=== PATIENT | female | born 1945 | race Caucasian/White ===

== ENCOUNTER 2017-12-16 06:54 | Day surgery (SDC) | payer MEDICARE ==
[2017-12-10 08:40] VITALS: BMI 27.4
[~2017-12-16 06:54] MED LIST: LACTATED RINGERS 1,000 ML IV SCH; LIDOCAINE 1% 20 ML VIAL (10MG/ML) FOR IV START INTRADERMA PRN; MOXIFLOXACIN HCL 0.5% DROPS 3 ML BTL OP ONE; TETRACAINE 0.5% OPHTH (PF) DROPS 4 ML BTL OP ONE; TIMOLOL 0.5% OPHTH DROPS 5 ML BTL OP ONE
[2017-12-16] MEDS: CYCLOPENTOLATE 1% OPHTH SOLN 2 ML BTL OP ONE ×3 (07:25→07:31)
[2017-12-16] MEDS: PHENYLEPHRINE 2.5% OPHTH DRP 2ML OP NR ×3 (07:34→07:40)
[2017-12-16 07:57] VITALS: RESP 16; TEMP 98.9
[2017-12-16] MEDS ORDERED: MIDAZOLAM 2 MG/2 ML VIAL ONE (08:08)
[2017-12-16] MEDS ORDERED: fentaNYL (PF) 50 MCG/ML 2 ML AMP ONE (08:08)
[2017-12-16] MEDS ORDERED: HYALURONATE SODIUM INTRAOCULAR 1 EACH SYRINGE (12MG/ML) INTRAOCULA ONE (08:22)
[2017-12-16] MEDS ORDERED: BALANCED SALT IRRIG SOLN COMB2 15 ML IRRIG.SOLN INTRAOCULA ONE (08:23)
[2017-12-16] MEDS ORDERED: EPINEPHrine (PF) 0.3 ML in BALANCED SALT IRRIG SOLN COMB2 500 ML IRRIGATION ONE (08:24)
[2017-12-16] MEDS ORDERED: LIDOCAINE 1% (PF) 10MG/ML VIAL SQ ONE (08:24)
--- NOTE | 2017-12-16 08:42 | P.OP ---
Date of Procedure: 12/16/17 Preoperative Diagnosis: NS & PSC Postoperative Diagnosis: same Procedure(s) Performed: PIOL, OD Implants: PCB00 25.0 Anesthesia: MAC Surgeon: Garfield Jaquez Estimated Blood Loss (ml): 0 Pathology: none sent Condition: stable Disposition: same day Indications for Procedure: blurry vision Operative Findings: no complications
[2017-12-16 08:55] VITALS: BP 133/64; PULSE 57
--- NOTE | 2017-12-17 07:48 | OP ---
OPERATIVE REPORT DATE OF SURGERY: December 16, 2017 PREOPERATIVE DIAGNOSES:: 1. Nuclear sclerosis. 2. Posterior subcapsular cataract. POSTOPERATIVE DIAGNOSES:: 1. Nuclear sclerosis. 2. Posterior subcapsular cataract. OPERATION:: Phacoemulsification of cataract and intraocular lens implant of the right eye. ESTIMATED BLOOD LOSS:: Zero. SPECIMEN TAKEN:: None. NARRATIVE:: After obtaining the appropriate consent, the patient was brought to the Operating Room where the patient was placed under cardiac monitoring and prepped and draped in the usual sterile manner. At the 11 o'clock position a 15 degree super sharp blade was used to create a paracentesis followed by instillation of 1% Xylocaine MPF 50:50 mix with BSS into the anterior chamber. This was followed by Duovisc to stabilize the anterior chamber. At the 9 o'clock position a self-sealing corneal flap incision was created using 2.8 mm taran keratome. A cystatome was used to initiate a continuous tear capsulorrhexis which was completed with the Utrata forceps. A Binkhorst cannula was used to hydrodissect the lens nucleus followed by hydrodelineation. Phacoemulsification of the lens was performed utilizing phacochop in 23.17 seconds at 11% power. The remaining cortical material was removed using the irrigation aspiration mode followed by additional 1% Xylocaine MPF into the anterior chamber followed by viscoelastic to stabilize the capsular bag. An RORO PCP 00 25.0 diopters posterior chamber lens was placed into the capsular bag without difficulty. The remaining viscoelastic material was removed from the anterior chamber with the irrigation/aspiration. Balanced salt solution was used to normalize the intraocular pressure. The incision was checked for watertight integrity. The patient then received two drops of 0.5% timolol followed by two drops Vigamox, was lightly patched and shielded in the usual manner. There were no complications from the procedure. The patient tolerated the procedure well and was returned to recovery in good condition. MMODL / IJN: [id number] /
== END 2017-12-16 09:23 | disposition home or self-care (01) ==
LOC: OR 06:54
PROVIDERS: ATTEND Ophthalmology
DX: H25.11 Age-related nuclear cataract, right eye (principal); H25.041 Posterior subcapsular polar age-related cataract, right eye; H52.4 Presbyopia; H02.531 Eyelid retraction right upper eyelid; H02.534 Eyelid retraction left upper eyelid; H52.223 Regular astigmatism, bilateral; E03.9 Hypothyroidism, unspecified; J34.9 Unspecified disorder of nose and nasal sinuses; Z79.890 Hormone replacement therapy
CPT/HCPCS: 66984; C1780; J2250; J0171; J3010; J2001

== ENCOUNTER 2018-01-06 08:38 | Day surgery (SDC) | payer MEDICARE ==
[2017-12-22 09:55] VITALS: BMI 27.4
[~2018-01-06 08:38] MED LIST changes: -LIDOCAINE 1% 20 ML VIAL (10MG/ML) FOR IV START INTRADERMA PRN; +PHENYLEPHRINE 2.5% OPHTH DRP 2ML OP NR
[2018-01-06 09:22] VITALS: TEMP 98.1
[2018-01-06] MEDS: CYCLOPENTOLATE 1% OPHTH SOLN 2 ML BTL OP ONE ×3 (09:28→09:48)
[2018-01-06] MEDS ORDERED: LIDOCAINE 1% 20 ML VIAL (10MG/ML) FOR IV START INTRADERMA ONE (09:49)
[2018-01-06] MEDS ORDERED: fentaNYL (PF) 50 MCG/ML 2 ML AMP ONE (10:20)
[2018-01-06] MEDS ORDERED: MIDAZOLAM 2 MG/2 ML VIAL ONE (10:20)
[2018-01-06] MEDS ORDERED: BALANCED SALT IRRIG SOLN COMB2 15 ML IRRIG.SOLN INTRAOCULA ONE (10:22)
[2018-01-06] MEDS ORDERED: LIDOCAINE 1% (PF) 10MG/ML VIAL SQ ONE (10:23)
[2018-01-06] MEDS ORDERED: EPINEPHrine (PF) 0.3 ML in BALANCED SALT IRRIG SOLN COMB2 500 ML IRRIGATION ONE (10:24)
[2018-01-06] MEDS ORDERED: HYALURONATE SODIUM INTRAOCULAR 1 EACH SYRINGE (12MG/ML) INTRAOCULA ONE (10:28)
--- NOTE | 2018-01-06 10:45 | P.OP ---
Date of Procedure: 01/06/18 Preoperative Diagnosis: NS & PSC Postoperative Diagnosis: same Implants: PCB00 26.00 Anesthesia: MAC Surgeon: Garfield Jaquez Estimated Blood Loss (ml): 0 Condition: stable Disposition: same day Indications for Procedure: blurry vision Operative Findings: No complications
[2018-01-06 10:57] VITALS: RESP 16
[2018-01-06 11:21] VITALS: BP 142/78; PULSE 59
--- NOTE | 2018-01-06 19:41 | OP ---
OPERATIVE REPORT DATE OF SURGERY: 01/06/2018. PROCEDURE: Phacoemulsification of cataract and intraocular lens implant of the left eye. PREOPERATIVE DIAGNOSIS: Nuclear sclerosis, left eye. POSTOPERATIVE DIAGNOSIS: Subcapsular cataract, left eye. ESTIMATED BLOOD LOSS:: Zero. SPECIMEN TAKEN:: None. NARRATIVE:: After obtaining the appropriate consent, the patient was brought to the operating room, where the patient was placed under cardiac monitoring and prepped and draped in the usual sterile manner. At the 5 o'clock position a 15-degree super sharp blade was used to create a paracentesis followed by instillation of 1% Xylocaine MPF 50:50 mix with BSS into the anterior chamber. This was followed by Amvisc to stabilize the anterior chamber. At the 3 o'clock position a self-sealing corneal flap incision was created using 2.8 mm taran keratome. A cystotome was used to initiate a continuous tear capsulorrhexis which was completed with the Utrata forceps. A Binkhorst cannula was used to hydrodissect the lens nucleus followed by hydrodelineation. Phacoemulsification of the lens was performed utilizing phaco-chop in 15.73 seconds at 16% power. The remaining cortical material was removed using the irrigation aspiration mode followed by additional 1% Xylocaine MPF into the anterior chamber followed by viscoelastic to stabilize the capsular bag. An RORO PCB 00 26.0 diopter posterior chamber lens was placed into the capsular bag without difficulty. The remaining viscoelastic material was removed from the anterior chamber with the irrigation/aspiration. Balanced salt solution was used to normalize the intraocular pressure. The incision was checked for watertight integrity. The patient then received two drops of 0.5% timolol followed by two drops Vigamox, was lightly patched and shielded in the usual manner. There were no complications from the procedure. The patient tolerated the procedure well and was returned to recovery in good condition. MMODL / IJN: [id number] /
== END 2018-01-06 11:42 | disposition home or self-care (01) ==
LOC: OR 08:38
PROVIDERS: ATTEND Ophthalmology
DX: H25.042 Posterior subcapsular polar age-related cataract, left eye (principal); H02.531 Eyelid retraction right upper eyelid; H02.534 Eyelid retraction left upper eyelid; H52.4 Presbyopia; H52.223 Regular astigmatism, bilateral; E03.9 Hypothyroidism, unspecified; Z96.1 Presence of intraocular lens; J34.9 Unspecified disorder of nose and nasal sinuses; Z79.890 Hormone replacement therapy; Z79.899 Other long term (current) drug therapy
CPT/HCPCS: 66984; C1780; J2250; J0171; J3010; J2001

== ENCOUNTER → 2018-10-26 | Outpatient (CLI) | payer MEDICARE ==
--- NOTE | 2018-10-27 08:07 | MM ---
Reason for exam: screening (asymptomatic). Last mammogram was performed 2 years and 4 months ago. History: Patient is postmenopausal. Physical Findings: A clinical breast exam by your physician is recommended on an annual basis and results should be correlated with mammographic findings. MG Screening Mammo w CAD Bilateral CC and MLO view(s) were taken. Prior study comparison: July 10, 2016, right breast MG diagnostic mammo RT w CAD. January 09, 2016, right breast MG 3d work up w/cad RT. The breast tissue is heterogeneously dense. This may lower the sensitivity of mammography. There is no discrete abnormality. No significant changes when compared with prior studies. ASSESSMENT: Benign, BI-RAD 2 RECOMMENDATION: Routine screening mammogram of both breasts in 1 year.
== END | disposition home or self-care (01) ==
LOC: RADMAMWWP 08:06
PROVIDERS: ATTEND Family Medicine
DX: Z12.31 Encounter for screening mammogram for malignant neoplasm of breast (principal)
CPT/HCPCS: 77067

== ENCOUNTER → 2019-11-14 | Outpatient (CLI) | payer MEDICARE ==
[~2019-11-14] MED LIST changes: +DENOSUMAB 60 MG/ML 1 ML SYRINGE SQ NR; -LACTATED RINGERS 1,000 ML IV SCH; -MOXIFLOXACIN HCL 0.5% DROPS 3 ML BTL OP ONE; -PHENYLEPHRINE 2.5% OPHTH DRP 2ML OP NR; -TETRACAINE 0.5% OPHTH (PF) DROPS 4 ML BTL OP ONE; -TIMOLOL 0.5% OPHTH DROPS 5 ML BTL OP ONE
[2019-11-14 14:51] VITALS: BP 163/81; PULSE 67; RESP 16; TEMP 98.3
== END | disposition home or self-care (01) ==
LOC: PROCWHC3 14:26
PROVIDERS: ATTEND Nurse Practitioner Adult Health
DX: M81.0 Age-related osteoporosis without current pathological fracture (principal)
CPT/HCPCS: 96372; J0897

== ENCOUNTER → 2020-09-26 | Outpatient (CLI) | payer MEDICARE ==
--- NOTE | 2020-09-27 12:36 | MM ---
Reason for exam: screening (asymptomatic). Last mammogram was performed 1 year and 11 months ago. History: Patient is postmenopausal. Physical Findings: A clinical breast exam by your physician is recommended on an annual basis and results should be correlated with mammographic findings. MG 3D Screening Mammo W/Cad Bilateral CC and MLO view(s) were taken. Prior study comparison: October 26, 2018, bilateral MG screening mammo w CAD. July 10, 2016, right breast MG diagnostic mammo RT w CAD. The breast tissue is heterogeneously dense. This may lower the sensitivity of mammography. No significant changes when compared with prior studies. ASSESSMENT: Benign, BI-RAD 2 RECOMMENDATION: Routine screening mammogram of both breasts in 1 year.
== END | disposition home or self-care (01) ==
LOC: RADMAMWWP 09:58
PROVIDERS: ATTEND Nurse Practitioner Adult Health
DX: Z12.31 Encounter for screening mammogram for malignant neoplasm of breast (principal)
CPT/HCPCS: 77063; 77067

== ENCOUNTER → 2021-02-05 | Outpatient (CLI) | payer MEDICARE ==
--- NOTE | 2021-02-05 12:09 | P.STRESS ---
- Stress Test Note Stress Test Results/Findings: Exam Performed: stress echo exercise Exam Date: 02/05/21 Reason for Exam: Fatigue Height: 5 ft 4 in Weight: 77.2 kg Protocol: Italo stress echo Stage: I Duration of Exercise: 2:14 Resting Heart Rate: 74 Resting Blood Pressure: 151/76 Maximum Achieved Heart Rate: 149 Maximum Achieved Blood Pressure: 211/70 85% PMHR: 123 100% PMHR: 145 METS: 3.4 Technologist Comment: last BP 163/67 5 min pot exercise Stress Test Results/Findings: Patient underwent exercise stress echo with a Italo protocol treadmill stress test. Patient exercised into Stage 1 for a total of 2 minutes and 14 seconds reaching a total of 3.4 METS. Patient's maximum heart rate was 149 which represented 100 % age-predicted maximum heart rate. Stress EKG portion: At baseline patient's EKG showed normal sinus rhythm, normal axis, rare PVCs, no significant ST or T wave abnormalities. At peak exercise, EKG showed no si gnificant change from baseline. Stress echo portion: 2-D echocardiogram was performed in the parasternal long, personal short, apical 2 and apical four-chamber views at rest, peak exercise and in recovery. At baseline, echocardiogram showed left ventricular ejection fraction 60 % without wall motion abnormalities. With peak exercise, echocardiogram shows improvement in left ventricular ejection fraction, increase contractility, decrease in left ventricular dimension without wall motion abnormalities consistent with a normal response to exercise. Conclusions: 1. Normal EKG and echo response to exercise without evidence of inducible ischemia. 2. Very poor exercise capacity.
== END ==
LOC: RADNMMAIN 09:40
PROVIDERS: ATTEND Family Medicine
DX: I10 Essential (primary) hypertension (principal)
CPT/HCPCS: C8930; Q9950; 93351

== ENCOUNTER → 2021-03-22 | Outpatient (CLI) | payer MEDICARE ==
--- NOTE | 2021-03-22 08:54 | CT ---
EXAMINATION TYPE: CT lumbar spine wo con DATE OF EXAM: 03/22/2021 8:13 AM COMPARISON: None HISTORY: lumbar disc degeneration CT DLP: 949.60 mGycm Automated exposure control for dose reduction was used. Unenhanced CT of the lumbar spine was performed. Bone and soft tissue window settings are submitted as well as coronal and sagittal reconstructions. There is hypertrophic and degenerative disc disease at all levels with most marked findings at L4-5 a nd L5-S1 compatible severe degenerative disc disease. Diverticulosis of the colon. Parapelvic bilater al renal cysts suspected. Sub-5 mm exophytic lesion involving the right kidney too small to character ize. Postcholecystectomy changes noted. L1-L2: Degenerative disc disease and hypertrophic spurring. No obvious disc herniation or canal steno sis. No foraminal encroachment. L2-L3: Degenerative disc disease with facet arthropathy. Mild circumferential disc bulging. No defini te foraminal encroachment or canal stenosis. L3-L4: Severe degenerative disc disease with broad-based disc bulging, facet arthropathy and ligament um flavum hypertrophy. Could not exclude mild canal stenosis suspected mild bilateral foraminal encro achment. Recommend MRI. L4-L5: Severe degenerative disc disease with facet arthropathy. Mild effacement of thecal sac and for aminal encroachment with mild canal stenosis suggested. L5-S1: Severe degenerative disc disease with facet arthropathy. Bilateral foraminal encroachment. No definite canal stenosis. IMPRESSION: 1. Multilevel severe degenerative disc disease with facet arthropathy. Disc bulging L3-L4 and L2-L3. 2. Multilevel mild foraminal encroachment. Could not exclude mild canal stenosis L3-4 or L4-5 recomme nd follow-up MRI.
== END | disposition home or self-care (01) ==
LOC: RADCTMAIN 07:57
PROVIDERS: ATTEND Nurse Practitioner Adult Health
DX: M51.36 Other intervertebral disc degeneration, lumbar region (principal); M51.26 Other intervertebral disc displacement, lumbar region; M48.061 Spinal stenosis, lumbar region without neurogenic claudication; M47.816 Spondylosis without myelopathy or radiculopathy, lumbar region; M99.73 Connective tissue and disc stenosis of intervertebral foramina of lumbar region
CPT/HCPCS: 72131

== ENCOUNTER → 2021-06-06 | Outpatient (CLI) | payer MEDICARE ==
--- NOTE | 2021-06-06 17:36 | CT ---
EXAMINATION TYPE: CT abdomen pelvis wo/w con DATE OF EXAM: 06/06/2021 COMPARISON: None INDICATION: Parapelvic renal cyst. DLP: 2246 mGycm, Automated exposure control for dose reduction was used. CONTRAST: 100 mL of Isovue M300. Study performed with Oral Contrast TECHNIQUE: Axial images were obtained from above the diaphragm to the pubic rami in the axial plane a t 5 mm thick sections. Reconstructed images are reviewed on the computer in the coronal plane. FINDINGS: Limited CT sections are obtained the lung bases. The lung bases are clear. CT ABDOMEN: Liver: Normal Spleen: Normal Pancreas: Normal Adrenal glands: The adrenal glands are normal. Gallbladder: Surgically absent Kidneys: No masses are evident. No hydronephrosis is present. No cysts are present. Exam is initia lly without intravenous contrast. No renal stones are identified. Some peripelvic cysts may be presen t. Following contrast administration. Pelvic cysts present bilaterally are better visualized. These a re greater on the left but are small. Delayed images were obtained through the kidneys. Aorta: Normal Inferior vena cava: Normal. CT PELVIS: There may be some bowel wall thickening to the sigmoid colon. Correlate for colitis. Some mild wall t hickening may be present at the splenic flexure. Multiple diverticuli are present within the sigmoid colon. No adjacent inflammatory changes are evident however to suggest acute diverticulitis. There ar e loops of bowel which are incompletely distended or lack oral contrast limiting their evaluation. Co ntrast extends to the rectum. Appendix: Not identified. No dilated tubular structures are inflammatory changes are evident. Urinary bladder: Normal. Genitourinary structures: Uterus and adnexa are normal Osseous structures: No suspicious lytic or sclerotic lesions. IMPRESSIONS: 1. Suggestion of mild wall thickening within the sigmoid colon and at the splenic flexure. Correlate for colitis. 2. Diverticulosis without evidence of acute diverticulitis within the sigmoid colon. 3. Peripelvic cysts greater on the left.
== END | disposition home or self-care (01) ==
LOC: RADCTMAIN 12:21
PROVIDERS: ATTEND Family Medicine
DX: N28.1 Cyst of kidney, acquired (principal); K57.30 Diverticulosis of large intestine without perforation or abscess without bleeding
CPT/HCPCS: 82565; 84520; 74178; 36415; Q9967 ×2

== ENCOUNTER → 2023-02-16 | Outpatient (CLI) | payer MEDICARE ==
--- NOTE | 2023-02-17 06:20 | MR ---
EXAMINATION TYPE: MR lumbar spine wo con DATE OF EXAM: 02/16/2023 COMPARISON: CT lumbar spine March 22, 2021 HISTORY: Low back pain that radiates down both legs TECHNIQUE: Multiplanar, multisequence imaging of the lumbar spine is performed without IV contrast. FINDINGS: Sagittal images of the lumbar spine show vertebral body heights and alignment to appear sta ble and satisfactory. There is multilevel disc desiccation. Moderate to advanced disc space narrowing L4-L5 level is redemonstrated. Moderate multilevel anterior spurring is redemonstrated. The conus m edullaris is normal in position and signal ending inferior T12 level. The bone marrow signal intensi ty is overall heterogeneous. Axial images at T12-L1 level shows mild broad-based disc bulge minimally effacing anterior thecal sac along with mild facet arthropathy effacing posterior lateral thecal sac. Axial images at L1-L2 level appear within normal limits. Axial images at L2-L3 level show [id number] broad disc bulge mildly effacing the anterior theca l sac along with mild facet arthropathy and ligamentum flavum hypertrophy effacing the posterior late ral thecal sac. Patent bilateral neural foramina. Axial images at L3-L4 level shows mild broad-based posterior disc protrusion mildly effaces the anter ior thecal sac along with mild facet arthropathy and ligamentum flavum hypertrophy effacing posterior lateral thecal sac bilaterally. There is no significant neural foraminal narrowing. Axial images at L4-L5 level show right paracentral/foraminal spurring causing asymmetric mild right-s ided anterior inferior neural foraminal narrowing. There is mild to moderate facet arthropathy bilate rally. Left-sided neural foramen is patent. Tiny central disc protrusion minimally effaces the anteri or thecal sac. Axial images at L5-S1 level shows mild to moderate facet arthropathy bilaterally. Spinal canal is pre served. Marginal spurring causes [id number] right greater than left bilateral neural foraminal narrowing. There are simple central parapelvic cysts in both kidneys redemonstrated. Common bile duct measures 1 4 mm in size mildly dilated after cholecystectomy but not significantly changed from [address] CT. IMPRESSION: Multilevel degenerative changes in the lumbar spine as detailed above
== END | disposition home or self-care (01) ==
LOC: RADMRIMAIN 17:55
PROVIDERS: ATTEND Internal Medicine
DX: M47.816 Spondylosis without myelopathy or radiculopathy, lumbar region (principal)
CPT/HCPCS: 72148

== ENCOUNTER → 2023-07-03 | Outpatient (CLI) | payer MEDICARE ==
--- NOTE | 2023-07-03 13:37 | US ---
EXAMINATION TYPE: US kidneys/renal and bladder DATE OF EXAM: 07/03/2023 COMPARISON: CT CLINICAL INDICATION: Female, 78 years old with history of R10.9 UNSPECIFIED ABDOMINAL PAIN; Pt states left side ABD pain EXAM MEASUREMENTS: Right Kidney: 10.3 x 5.3 x 4.7 cm Left Kidney: 10.2 x 5.7 x 4.9 cm Right Kidney: Possible parapelvic cysts as visualized on prior CT, largest= 1.8 cm Left Kidney: Possible parapelvic cysts as visualized on prior CT, largest= 1.6 cm Bladder: wnl Bilateral Jets seen: No There is no evidence for hydronephrosis at this point in time. No nephrolithiasis is seen. No solid masses are identified. The urinary bladder is anechoic. Bilateral ureteral jets are seen. IMPRESSION: Parapelvic renal cysts noted.
--- NOTE | 2023-07-03 15:53 | US ---
EXAMINATION TYPE: US pelvic complete DATE OF EXAM: 07/03/2023 COMPARISON: Ct 06/06/2021 CLINICAL INDICATION: Female, 78 years old with history of R10.9 UNSPECIFIED ABDOMINAL PAIN; Pelvic p ain. Patient thinks she had one fallopian tube removed. Patient is unclear on her history, she thinks she still has both ovaries. . TECHNIQUE: Transabdominal (TA). Transabdominal sonographic images of the pelvis were acquired. Tra nsvaginal sonographic images were not performed, patient does not want transvaginal exam. Date of LMP: Unknown, patient states in her 40s. EXAM MEASUREMENTS: Uterus: 6.6 x 3.3 x 2.4 cm Endometrial Stripe: 0.26 cm Right Ovary: Not visualized. Left Ovary: Not visualized. 1. Uterus: Anteverted Appears wnl 2. Endometrium: 0.26 cm 3. Right Ovary: Not visualized. 4. Left Ovary: Not visualized. 5. Bilateral Adnexa: Appear wnl, bowel peristalsis seen throughout. 6. Posterior cul-de-sac: Appears wnl IMPRESSION: No discrete abnormality appreciated.
== END | disposition home or self-care (01) ==
LOC: RADUSWWP 12:55
PROVIDERS: ATTEND Internal Medicine
DX: N28.1 Cyst of kidney, acquired (principal); R10.9 Unspecified abdominal pain; R10.2 Pelvic and perineal pain
CPT/HCPCS: 76770; 76856

== ENCOUNTER → 2024-01-11 | Outpatient (CLI) | payer MEDICARE ==
--- NOTE | 2024-01-12 09:33 | MM ---
Reason for Exam: Screening (asymptomatic). Last mammogram was performed 3 year(s) and 3 month(s) ago. Patient History: Menarche at age 12. First Full-Term at age 21. Postmenopausal. Risk Values: Sally 5 year model risk: 1.5%. NCI Lifetime model risk: 2.8%. Prior Study Comparison: 07/10/2016 Right Diagnostic Mammogram, [facility]. 10/26/2018 Bilateral Screening Mammogram, [facility]. 09/26/2020 Bilateral Screening Mammogram, [facility]. Tissue Density: The breast tissue is heterogeneously dense. This may lower the sensitivity of mammography. Findings: Analyzed By CAD. There is no suspicious group of microcalcifications or new suspicious mass in either breast. Overall Assessment: Benign, BI-RAD 2 Management: Screening Mammogram of both breasts in 1 year. . Patient should continue monthly self-breast exams. A clinical breast exam by your physician is recommended on an annual basis. This exam should not preclude additional follow-up of suspicious palpable abnormalities. Note on Sally scores and lifetime risk: 1. A Sally score greater than 3% is considered moderate risk. If this is the case, consider specialist referral to assess eligibility for a risk reducing agent. 2. If overall lifetime risk for the development of breast cancer is 20% or higher, the patient may qualify for future screening with alternating mammogram and breast MRI. Electronically signed and approved by: Leonid Nichols M.D. Radiologis
== END | disposition home or self-care (01) ==
LOC: RADMAMWWP 14:34
PROVIDERS: ATTEND Internal Medicine
DX: Z12.31 Encounter for screening mammogram for malignant neoplasm of breast (principal); Z78.0 Asymptomatic menopausal state
CPT/HCPCS: 77063; 77067

== ENCOUNTER → 2025-02-16 | Outpatient (CLI) | payer MEDICARE ==
--- NOTE | 2025-02-16 10:33 | MR ---
EXAMINATION TYPE: MR lumbar spine wo con DATE OF EXAM: 02/16/2025 COMPARISON: Prior MRI February 16, 2023 HISTORY: Low back pain TECHNIQUE: Multiplanar, multisequence imaging of the lumbar spine is performed without IV contrast. FINDINGS: Sagittal images of the lumbar spine show vertebral body heights and alignment to appear sta ble and satisfactory. Multilevel disc desiccation is redemonstrated. Moderate to advanced disc space narrowing L4-L5 level is redemonstrated. Moderate multilevel anterior spurring is redemonstrated. Th e conus medullaris is normal in position and signal ending inferior T12 level. The bone marrow signa l intensity remains overall heterogeneous. Axial images at T12-L1 level redemonstrates mild broad-based disc bulge mildly effacing anterior thec al sac along with mild facet arthropathy effacing left posterior lateral thecal sac. Axial images at L1-L2 level remain within normal limits. Axial images at L2-L3 level redemonstrate [id number] broad disc bulge mildly effacing the anter ior thecal sac along with mild to moderate facet arthropathy and ligamentum flavum hypertrophy effaci ng the bilateral posterior lateral thecal sac. Patent bilateral neural foramina. No significant perez e from prior. 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 There is no significant neural foraminal narrowing. No significan t change from prior. Axial images at L4-L5 level show moderate broad disc bulge causing asymmetric mild right-sided neural foraminal narrowing. There is mild to moderate facet arthropathy bilaterally redemonstrated. Left-si ded neural foramen is patent. Tiny central disc protrusion minimally effaces the anterior thecal sac. No significant change from prior. Axial images at L5-S1 level shows mild to moderate facet arthropathy bilaterally. Spinal canal is pre served. Marginal spurring causes [id number] right greater than left bilateral neural foraminal narrowing. There is right lateral disc protrusion redemonstrated. There are simple central parapelvic cysts in both kidneys redemonstrated. Common bile duct measures 1 7 mm in size dilated after cholecystectomy and more prominent from prior MRI IMPRESSION: Multilevel degenerative changes in the lumbar spine as detailed above fairly stable from most recent MRI. Increasing CB dilatation is noted and warrants clinical correlation and follow-up im aging to further evaluate. [facility], , 02/16/2025 10:31 AM
== END | disposition home or self-care (01) ==
LOC: RADMRIMAIN 07:25
PROVIDERS: ATTEND Internal Medicine
DX: M47.816 Spondylosis without myelopathy or radiculopathy, lumbar region (principal); M51.26 Other intervertebral disc displacement, lumbar region; M99.73 Connective tissue and disc stenosis of intervertebral foramina of lumbar region
CPT/HCPCS: 72148

== ENCOUNTER 2025-06-12 16:56 | Observation (INO) | payer MEDICARE ==
--- NOTE | 2025-06-12 17:43 | ED ---
Fall HPI - General Source: patient, RN notes reviewed Mode of arrival: wheelchair Limitations: no limitations - History of Present Illness MD Complaint: fall Onset/Timin -: minutes(s) Time: 16:30 Fall From: standing Fall Witnessed: yes, by bystander Place Fall Occurred: home Loss of Consciousness: none Prolonged Down Time?: no Symptoms Prior to Fall: none Location - Extremities: Left: Ankle Severity scale (1-10): 8 Context: tripped/slipped Associated Symptoms: denies <Miguel Angel Saunders - Last Filed: 06/12/25 19:30> - General Source: patient, RN notes reviewed, old records reviewed Mode of arrival: wheelchair Limitations: no limitations <Lei Mancuso - Last Filed: 06/13/25 17:43> - General Chief Complaint: Fall Stated Complaint: Fall/L ankle injury Time Seen by Provider: 06/12/25 17:11 - History of Present Illness Initial Comments: This is an 80-year-old female with no significant medical history presenting for left ankle injury occurring at 1630 this afternoon. Patient states she was caring an [id number] when she accidentally struck a step going upwards with her foot, causing subsequent fall and injury to her left ankle (/10). Patient denies striking her head, loss consciousness, headache, neck pain or other significant injury. Patient states she has [place]r and crutches at home. (Miguel Angel Saunders) This is a 80-year-old female to the ER for evaluation of left ankle pain severe left ankle pain here in the emergency department after a fall (Neil Mancuso) - Related Data Home Medications Medication Instructions Recorded Confirmed Levothyroxine Sodium [Synthroid] 25 mcg PO DAILY 12/10/17 06/12/25 Escitalopram [Lexapro] 20 mg PO DAILY 06/12/25 06/12/25 Fenofibrate [Lofibra] 160 mg PO DAILY 06/12/25 06/12/25 HYDROcodone/APAP 10-325MG [[place] 1 tab PO TID 06/12/25 06/12/25 10-325] Losartan [Cozaar] 50 mg PO DAILY 06/12/25 06/12/25 Pravastatin Sodium [Pravachol] 20 mg PO HS 07/21/25 07/21/25 metFORMIN HCL 1,000 mg PO BID 06/12/25 06/12/25 Previous Rx's Medication Instructions Recorded Ibuprofen [Motrin] 600 mg PO Q8HR PRN #30 tab 06/12/25 Allergies Allergy/AdvReac Type Severity Reaction Status Date / Time No Known Allergies Allergy Verified 06/12/25 21:06 Review of Systems ROS Other: All systems not noted in ROS Statement are negative. <Miguel Angel Saunders - Last Filed: 06/12/25 19:30> ROS Other: All systems not noted in ROS Statement are negative. <Lei Mancuso - Last Filed: 06/13/25 17:43> ROS Statement: Those systems with pertinent positive or pertinent negative responses have been documented in the HPI. Past Medical History Past Medical History: Eye Disorder, Thyroid Disorder History of Any Multi-Drug Resistant Organisms: None Reported Past Surgical History: Appendectomy, Cholecystectomy, Joint Replacement Additional Past Surgical History / Comment(s): R Shoulder replaced; Cataract R Eye Past Anesthesia/Blood Transfusion Reactions: No Reported Reaction Past Psychological History: No Psychological Hx Reported Smoking Status: Never smoker Past Alcohol Use History: None Reported Past Drug Use History: None Reported - Past Family History Mother Family Medical History: No Reported History <ChipMiguel Angel - Last Filed: 06/12/25 19:30> General Exam Limitations: no limitations General appearance: alert, in no apparent distress Head exam: Present: atraumatic, normocephalic, normal inspection Eye exam: Present: normal appearance, PERRL, EOMI. Absent: scleral icterus, conjunctival injection, periorbital swelling ENT exam: Present: normal exam, mucous membranes moist Neck exam: Present: normal inspection. Absent: tenderness, meningismus, lymphadenopathy Respiratory exam: Present: normal lung sounds bilaterally. Absent: respiratory distress, wheezes, rales, rhonchi, stridor Cardiovascular Exam: Present: regular rate, normal rhythm, normal heart sounds. Absent: systolic murmur, diastolic murmur, rubs, gallop, clicks GI/Abdominal exam: Present: soft, normal bowel sounds. Absent: distended, tenderness, guarding, rebound, rigid Extremities exam: Present: normal inspection, full ROM, tenderness (Positive left medial/lateral malleolus TTP with possible crepitus and lateral deformity.), normal capillary refill, other (Distal LLE neurovascular and motor function intact. Dorsalis pedis pulse +2, capillary refill less than 2 seconds. No obvious open wound.). Absent: pedal edema, joint swelling, calf tenderness Back exam: Present: normal inspection Neurological exam: Present: alert, oriented X3, CN II-XII intact Psychiatric exam: Present: normal affect, normal mood Skin exam: Present: warm, dry, intact, normal color. Absent: rash <Miguel Angel Saunders - Last Filed: 06/12/25 19:30> General appearance: alert, in no apparent distress Head exam: Present: atraumatic, normocephalic, normal inspection Eye exam: Present: normal appearance, PERRL, EOMI. Absent: scleral icterus, conjunctival injection, periorbital swelling ENT exam: Present: normal exam, mucous membranes moist Neck exam: Present: normal inspection. Absent: tenderness, meningismus, lymphadenopathy Respiratory exam: Present: normal lung sounds bilaterally. Absent: respiratory distress, wheezes, rales, rhonchi, stridor Cardiovascular Exam: Present: regular rate, normal rhythm, normal heart sounds. Absent: systolic murmur, diastolic murmur, rubs, gallop, clicks GI/Abdominal exam: Present: soft, normal bowel sounds. Absent: distended, tenderness, guarding, rebound, rigid Extremities exam: Present: normal inspection, full ROM, normal capillary refill. Absent: tenderness, pedal edema, joint swelling, calf tenderness Back exam: Present: normal inspection Neurological exam: Present: alert, oriented X3, CN II-XII intact Psychiatric exam: Present: normal affect, normal mood Skin exam: Present: warm, dry, intact, normal color. Absent: rash <Lei Mancuso - Last Filed: 06/13/25 17:43> Course <Lei Mancuso - Last Filed: 06/13/25 17:43> Vital Signs 06/12/25 06/12/25 06/12/25 17:12 18:44 21:39 Temperature 97.8 F 98 F Pulse Rate 68 68 80 Respiratory 18 18 19 Rate Blood Pressure 150/81 165/76 162/66 O2 Sat by Pulse 99 99 98 Oximetry 06/12/25 06/12/25 06/12/25 21:41 21:45 21:50 Temperature Pulse Rate 87 79 85 Respiratory 15 12 15 Rate Blood Pressure 168/82 93/49 105/50 O2 Sat by Pulse 97 97 99 Oximetry 06/12/25 06/12/25 06/12/25 21:53 21:55 22:10 Temperature Pulse Rate 79 101 H 87 Respiratory 12 16 16 Rate Blood Pressure 83/44 145/66 131/82 O2 Sat by Pulse 91 L 99 97 Oximetry 06/12/25 06/12/25 06/12/25 22:12 22:25 22:40 Temperature Pulse Rate 91 81 Respiratory 16 16 Rate Blood Pressure 143/73 156/65 O2 Sat by Pulse 98 97 99 Oximetry 06/12/25 06/12/25 06/13/25 23:10 23:40 00:22 Temperature Pulse Rate 80 81 88 Respiratory 18 18 18 Rate Blood Pressure 173/81 153/68 131/63 O2 Sat by Pulse 97 99 100 Oximetry - Reevaluation(s) Reevaluation #1: 06/12/25 21:10 Medical record is reviewed (Lei Mancuso) Reevaluation #2: 06/12/25 21:10 Patient symptoms improved (Lei Mancuso) Reevaluation #3: 06/12/25 21:10 Patient informed of results and questions answered (Lei Mancuso) - Consultations Consultation #1: Spoke with Dr. Posada who will see this patient (Lei Mancuso) Procedures - Orthopedic Fracture Reduction Fracture #1 Consent Obtained: verbal consent Side: left Fracture Reduction Location: tibia, fibula Analgesia: none Technique: direct manipulation, traction/counter-traction Post-Reduction Neuro Exam: intact Post-Reduction Vascular Exam: intact Splint Applied: Yes Patient Tolerated Procedure: well - Orthopedic Splinting/Casting Injury #1 Side: left Lower Extremity Injury Location: ankle Lower Extremity Immobilizer: posterior splint, stirrup splint Other Orthopedic Equipment: other (Patient declined crutches, stating she has crutches at home) <Miguel Angel Saunders - Last Filed: 06/12/25 19:30> - Orthopedic Joint Reduction Joint #1 Consent Obtained: verbal consent Side: left Analgesia: procedural sedation Technique Used: traction/counter-traction, direct manipulation Post-Reduction Neuro Exam: intact Post-Reduction Vascular Exam: intact Post Reduction X-Ray Obtained: Yes Post Reduction X-Ray Results: reduced Splint Applied: Yes Patient Tolerated Procedure: well - Procedural Sedation *Procedural Sedation Start Time: 21:25 *Procedural Sedation Stop Time: 22:00 *Risks,benefits, and alternative therapies discussed?: Yes *Patient indicates understanding of risk/benefit discussion?: Yes *Indications: fracture/dislocation reduction *Previous Adverse Reaction to Anesthesia/Sedation?: Yes * Testing Complete?: Yes Reason Test Not Complete:: Emergent Situation *ASA Class: III Preparation: cardiac care nurse applied, pulse oximeter, capnometry used IV Propofol Dose (mgs): 200 Complications: none Interventions: oxygen applied, airway repositioned, use of reversal agent Patient Tolerated Procedure: well <Lei Mancuso - Last Filed: 06/13/25 17:43> - Orthopedic Fracture Reduction Fracture #1 Additional Comments: Assistance for reduction received from Dr. Mancuso. (Miguel Angel Saunders) Medical Decision Making <Miguel Angel Saunders - Last Filed: 06/12/25 19:30> - Lab Data Result diagrams: 06/12/25 20:38 06/12/25 20:38 - EKG Data -: EKG Interpreted by Me (EKG sinus 76 IL 133 QRS 95 QTc 384) <Lei Mancuso - Last Filed: 06/13/25 17:43> - Medical Decision Making Was pt. sent in by a medical professional or institution ([facility], STEREO EQUIPMENT INSTALLER, urgent care, hospital, or group home...) When possible be specific @ -No Did you speak to anyone other than the patient for history (EMS, parent, family, police, friend...)? What history was obtained from this source @ -No Did you review nursing and triage notes (agree or disagree)? Why? @ -I reviewed and agree with nursing and triage notes Were old charts reviewed (outside hosp., previous admission, EMS record, old EKG, old radiological studies, urgent care reports/EKG's, group home records)? Report findings @ -No old charts were reviewed Differential Diagnosis (chest pain, altered mental status, abdominal pain women, abdominal pain men, vaginal bleeding, weakness, fever, dyspnea, syncope, headache, dizziness, GI bleed, back pain, seizure, CVA, palpatations, mental health, musculoskeletal)? @ -Differential Musculoskeletal Muscular strain, contusion, ligament sprain, fracture, arthritis, septic arthritis, bursitis, cellulitis, muscle spasm, nerve compression, DVT, arterial occlusion, herpes zoster, electrolyte abnormality, tumor.... This is not meant to be in all inclusive list EKG interpreted by me (3pts min.). @ -Not done X-rays interpreted by me (1pt min.). @ -Left ankle x-ray shows fracture/dislocation of the left ankle with moderately displaced medial malleolus and distal fibular fractures. Imaging postreduction shows ongoing displaced fracture. CT interpreted by me (1pt min.). @ -None done U/S interpreted by me (1pt. min.). @ -None done What testing was considered but not performed or refused? (CT, X-rays, U/S, labs)? Why? @ -None What meds were considered but not given or refused? Why? @ -None Did you discuss the management of the patient with other professionals (professionals i.e. , PA, STEREO EQUIPMENT INSTALLER, lab, RT, psych nurse, social services manager, toilet products molder, teacher, chief compliance officer, employment case manager)? Give summary @ -No Was smoking cessation discussed for >3mins.? @ -No Was critical care preformed (if so, how long)? @ -No Were there social determinants of health that impacted care today? How? (Homelessness, low income, unemployed, alcoholism, drug addiction, transportation, low edu. Level, literacy, decrease access to med. care, snf, rehab)? @ -No Was there de-escalation of care discussed even if they declined (Discuss DNR or withdrawal of care, Hospice)? DNR status @ -No What co-morbidities impacted this encounter? (DM, HTN, Smoking, COPD, CAD, Cancer, CVA, ARF, Chemo, Hep., AIDS, mental health diagnosis, sleep apnea, morbid obesity)? @ -None Was patient admitted / discharged? Hospital course, mention meds given and route, prescriptions, significant lab abnormalities, going to OR and other pertinent info. @ -Patient initially provided IM Dilaudid and Toradol and p.o. Tylenol for pain. Left ankle x-ray shows fracture/dislocation of the left ankle with moderately displaced medial malleolus and distal fibular fractures. Patient provided additional IM Dilaudid and Toradol for ongoing pain. Assistance obtained from Dr. Mancuso to assist with traction/reduction of left ankle fracture with subsequent splinting. Imaging postreduction shows ongoing displaced fracture. Milana sent to patient's pharmacy. Advised follow-up with orthopedics for ongoing management and care of displaced ankle fracture. Discussed patient with Dr. Mancuso who will assume care. Undiagnosed new problem with uncertain prognosis? @ -No Drug Therapy requiring intensive monitoring for toxicity (Heparin, Nitro, Insulin, Cardizem)? @ -No Were any procedures done? @ -Left ankle fracture reduced and splinted. See procedure note Diagnosis/symptom? @ -Closed medial malleolus and distal fibular fracture Acute, or Chronic, or Acute on Chronic? @ -Acute Uncomplicated (without systemic symptoms) or Complicated (systemic symptoms)? @ -Uncomplicated Side effects of treatment? @ -No Exacerbation, Progression, or Severe Exacerbation? @ -No Poses a threat to life or bodily function? How? (Chest pain, USA, OR, pneumonia, PE, COPD, DKA, ARF, appy, cholecystitis, CVA, Diverticulitis, Homicidal, Suicidal, threat to staff... and all critical care pts) @ -No (Miguel Angel Saunders) 80 female to be admitted for orthopedic evaluation and treatment patient is currently adequate pain control (Lei Mancuso) Disposition Is patient prescribed a controlled substance at d/c from ED?: No Time of Disposition: 18:23 <Miguel Angel Saunders - Last Filed: 06/12/25 19:30> Is patient prescribed a controlled substance at d/c from ED?: No <Lei Mancuso - Last Filed: 06/13/25 17:43> Clinical Impression: Closed fracture of left distal fibula, Fracture of medial malleolus, left, closed, Fall, Weakness, Dislocation of left ankle joint Disposition: ADMITTED IP TO THIS HOSP Condition: Fair
[2025-06-12] MEDS: ACETAMINOPHEN TAB 500 MG TAB PO STA (17:44)
[2025-06-12] MEDS: KETOROLAC 15 MG/ML 1 ML VIAL IM STA ×2 (17:45→18:46)
[2025-06-12] MEDS: HYDROmorphone 1 MG/ML 1 ML SYRINGE IM STA ×2 (17:46→18:46)
--- NOTE | 2025-06-12 18:17 | XR ---
EXAMINATION TYPE: XR ankle complete LT DATE OF EXAM: 06/12/2025 COMPARISON: NONE HISTORY: Significant pain following injury TECHNIQUE: 3 views of the left ankle are submitted for evaluation. FINDINGS: Acute moderately displaced medial malleolar fracture. There is inferior medial displacement of the me dial fracture fragment in relation to the distal tibia. Acute moderately displaced shortened fracture of the distal fibula at the ankle joint. There is approximately 1.7 cm of lateral displacement of th e lateral malleolus in relation to the proximal fibula. Medial dislocation of the tibia and fibula in relation to the talus. No distinct posterior malleolar fracture identified. Surrounding soft tissue swelling of the ankle. Posterior and plantar calcaneal enthesophytes. IMPRESSION: Acute fracture dislocation of the left ankle with moderately displaced medial malleolus and distal fi bular fractures. [facility], , 06/12/2025 6:15 PM
--- NOTE | 2025-06-12 19:29 | XR ---
EXAMINATION TYPE: XR ankle complete LT DATE OF EXAM: 06/12/2025 COMPARISON: Left ankle radiograph the same date HISTORY: Postsplint, injury, pain TECHNIQUE: 3 views of the left ankle are submitted for evaluation. FINDINGS: Interval placement of surrounding casting material which limits evaluation of fine osseous detail. Re demonstration of acute moderately displaced medial malleolar fracture. There is again inferior medial displacement of the medial fracture fragment in relation to the distal tibia. Redemonstration of acu te moderately displaced shortened fracture of the distal fibula at the ankle joint. There is again ap proximately 1.7 cm of lateral displacement of the lateral malleolus in relation to the proximal fibul a. Medial dislocation of the tibia and fibula again in relation to the talus. No distinct posterior m alleolar fracture identified. Surrounding soft tissue swelling of the ankle. Posterior and plantar calcaneal enthesophytes. IMPRESSION: No significant change in acute fracture dislocation of the left ankle with moderately displaced media l malleolus and distal fibular fractures. Surrounding casting material identified. [facility], , 06/12/2025 7:27 PM
[2025-06-12] MEDS ORDERED: ONDANSETRON 4 MG/2 ML VIAL IVP PRN (20:14)
[2025-06-12 20:58] LABS: Basophils # (A) 0.07 10*3/uL (0.00-0.10); Basophils % (A) 0.5 %; Eosinophils # (A) 0.06 10*3/uL (0.04-0.35); Eosinophils % (A) 0.5 %; HCT 34.8 % (37.2-46.3); HGB 11.2 g/dL (12.0-15.0); Lymphocytes # (A) 2.24 10*3/uL (0.90-5.00); Lymphocytes % (A) 17.1 %; MCH 29.2 pg (27.0-32.0); MCHC 32.2 g/dL (32.0-37.0); MCV 90.6 fL (80.0-97.0); Monocytes # (A) 0.63 10*3/uL (0.20-1.00); Monocytes % (A) 4.8 %; Neutrophils # (A) 10.03 10*3/uL (1.80-7.70); Neutrophils % (A) 76.8 %; Platelet Count 409 10*3/uL (140-440); RBC 3.84 10*6/uL (4.10-5.20); RDW 14.3 % (11.5-14.5); WBC 13.07 10*3/uL (4.50-10.00)
[2025-06-12] MEDS: HYDROmorphone 1 MG/ML 1 ML SYRINGE IVP STA (21:00)
[2025-06-12] MEDS: ONDANSETRON 4 MG/2 ML VIAL IVP STA (21:00)
[2025-06-12] MEDS: SODIUM CHLORIDE 0.9% 500 ML 500 ML IV ONE (21:01)
[2025-06-12] MEDS: SODIUM CHLORIDE 0.9% 1,000 ML IV SCH ×2 (21:05→21:06)
[2025-06-12 21:14] LABS: ALT 8 U/L (4-34); AST 24 U/L (14-36); African American GFR (CKD) 57 (>60 ml/min/1.73 sqM); Albumin 4.6 g/dL (3.5-5.0); Alkaline Phosphatase 65 U/L (38-126); Anion Gap 12 mmol/L; Blood Urea Nitrogen 23 mg/dL (7-17); Calcium 10.1 mg/dL (8.4-10.2); Carbon Dioxide 19 mmol/L (22-30); Chloride 105 mmol/L (98-107); Glucose 105 mg/dL (74-99); Magnesium 1.5 mg/dL (1.6-2.3); Non-African American GFR(CKD) 49 (>60 ml/min/1.73 sqM); Potassium 5.0 mmol/L (3.5-5.1); Sodium 136 mmol/L (137-145); Total Protein 7.1 g/dL (6.3-8.2)
[2025-06-12 21:19] LABS: INR 0.9 (<1.2); Partial Thromboplastin Time 22.0 sec (22.0-30.0); Prothrombin Time 10.5 sec (10.0-12.5)
[2025-06-12] MEDS: PROPOFOL 10 MG/ML 20 ML VIAL IV ONE (21:41)
[2025-06-12] MEDS: NALOXONE 0.4 MG/ML 1 ML VIAL IV PRN (21:53)
--- NOTE | 2025-06-12 22:09 | XR ---
EXAMINATION TYPE: XR ankle limited LT DATE OF EXAM: 06/12/2025 COMPARISON: Left ankle radiographs of the same date HISTORY: Post reduction left ankle, pain TECHNIQUE: Single frontal projection of the left ankle was obtained. FINDINGS: Overlying cast material limits evaluation for fine osseous detail. Redemonstration of acute fractures of the medial malleolus of the distal tibia and distal fibular fra cture. There is improved alignment post reduction on single frontal view of the ankle joint with some slight medial subluxation remaining measuring approximately 10 mm. There is still approximately 5 mm of lateral displacement of the medial malleolus in relation to the remaining tibia. Approximately 6 mm of lateral displacement of the lateral malleolus relation to the fibula. IMPRESSION: Redemonstration of fractures of the medial malleolus and distal fibula with improved alignment post r eduction. There is still slight subluxation medially of the tibia in relation to the talus. [facility], , 06/12/2025 10:06 PM
[2025-06-12] MEDS: HYDROmorphone 1 MG/ML 1 ML SYRINGE IVP PRN (23:17)
--- NOTE | 2025-06-13 09:25 | P.HPOR ---
History of Present Illness H&P Date: 06/13/25 Chief Complaint: Fall, left ankle pain Jeni is a 80 y/o female who presented to the emergency department after sustaining a fall yesterday, 06/12/2025. She states she was holding a 19 month old grandchild of her friend's and tripped and fell. She experienced immediate pain and deformity to the ankle. Upon exam in the ED, x-rays revealed a displaced bimalleolar ankle fracture. The ankle was reduced twice and a splint was placed on the patient. The ankle is still dislocated and she was admitted for further evaluation and care by orthopedics. Internal medicine is on consultation. This morning, she states the ankle is very painful. Review of Systems Constitutional: Denies chills, Denies fatigue, Denies fever Cardiovascular: Denies chest pain, Denies shortness of breath Respiratory: Denies cough Gastrointestinal: Denies diarrhea, Denies nausea, Denies vomiting Musculoskeletal: left: ankle pain, ankle stiffness, ankle swelling Past Medical History Past Medical History: Eye Disorder, Thyroid Disorder History of Any Multi-Drug Resistant Organisms: None Reported Past Surgical History: Appendectomy, Cholecystectomy, Joint Replacement Additional Past Surgical History / Comment(s): R Shoulder replaced; Cataract R Eye Past Anesthesia/Blood Transfusion Reactions: No Reported Reaction Past Psychological History: No Psychological Hx Reported Smoking Status: Never smoker Past Alcohol Use History: None Reported Past Drug Use History: None Reported - Past Family History Mother Family Medical History: No Reported History Medications and Allergies Home Medications Medication Instructions Recorded Confirmed Type Levothyroxine Sodium [Synthroid] 25 mcg PO DAILY 12/10/17 06/12/25 History Escitalopram [Lexapro] 20 mg PO DAILY 06/12/25 06/12/25 History Fenofibrate [Lofibra] 160 mg PO DAILY 06/12/25 06/12/25 History HYDROcodone/APAP 10-325MG [[place] 1 tab PO TID 06/12/25 06/12/25 History 10-325] Ibuprofen [Motrin] 600 mg PO Q8HR PRN #30 tab 06/12/25 Rx Losartan [Cozaar] 50 mg PO DAILY 06/12/25 06/12/25 History Pravastatin Sodium [Pravachol] 20 mg PO HS 06/12/25 06/12/25 History metFORMIN HCL 1,000 mg PO BID 06/12/25 06/12/25 History Allergies Allergy/AdvReac Type Severity Reaction Status Date / Time No Known Allergies Allergy Verified 06/12/25 21:06 Physical Examination Osteopathic Statement: *. No significant issues noted on an osteopathic structural exam other than those noted in the History and Physical/Consult. The patient is an 80 y/o female in no acute distress. She is alert and oriented x3. Exam of the left ankle reveals a posterior splint in place. She is able to wiggle her toes without difficulty. Her toes are warm and well perfused. Sensation is intact. Results X-rays of the left ankle were reviewed and reveal a displaced bimalleolar fracture despite two attempts at reduction. - Labs Labs: Abnormal Lab Results - Last 24 Hours (Table) 06/12/25 06/12/25 Range/Units 20:38 20:38 WBC 13.07 H (4.50-10.00) 10*3/uL RBC 3.84 L (4.10-5.20) 10*6/uL Hgb 11.2 L (12.0-15.0) g/dL Hct 34.8 L (37.2-46.3) % MPV 9.3 L (9.5-12.2) fL Neutrophils # 10.03 H (1.80-7.70) 10*3/uL Sodium 136 L (137-145) mmol/L Carbon Dioxide 19 L (22-30) mmol/L BUN 23 H (7-17) mg/dL Creatinine 1.07 H (0.52-1.04) mg/dL Glucose 105 H (74-99) mg/dL Magnesium 1.5 L (1.6-2.3) mg/dL H & H 06/12/25 Range/Units 20:38 Hgb 11.2 L (12.0-15.0) g/dL Hct 34.8 L (37.2-46.3) % Coagulation 06/12/25 Range/Units 20:38 INR 0.9 (<1.2) Result Diagrams: 06/14/25 05:41 06/14/25 05:41 Assessment and Plan (1) Displaced bimalleolar fracture of left ankle Current Visit: Yes Status: Acute Code(s): S82.842A - DISPLACED BIMALLEOLAR FRACTURE OF LEFT LOWER LEG, INIT SNOMED Code(s): 667824367 (2) Fall Current Visit: Yes Status: Acute Code(s): W19.XXXA - UNSPECIFIED FALL, INITIAL ENCOUNTER SNOMED Code(s): 5853762 Plan: The clinical and x-ray findings were discussed with the patient. The case was discussed with Dr. Posada. Treatment options were discussed and surgical intervention is recommended. We discussed the surgical plan as well as the expected postoperative course. Risks and benefits were reviewed including (but not limited to) the risks of infection, bleeding, blood clots, delayed or nonunion, anesthesia-related complications and possible need for additional surgery. Questions were invited and answered. The patient expressed understanding and wishes to proceed with surgery. The patient will be kept on bedrest. Continue PRN pain management. NPO today. She is scheduled for a left ankle open reduction and internal fixation this afternoon. We will await pre-op clearance from internal medicine. *Patient seen and examined. Agree with above A/p. Patient has been cleared and we'll plan to proceed with an ORIF today. She will be NWB for 6 weeks PO.
--- NOTE | 2025-06-13 12:37 | P.CONS ---
History of Present Illness - Reason for Consult Consult date: 06/13/25 medical management Requesting physician: Rosa Posada - History of Present Illness Jeni Tompkins is an 80-year-old female patient who presented after sustaining a fall with ankle fracture. Patient reports she was caring an [id number] and tripped over a step. Patient denies loss of consciousness or other injuries. Patient has past medical history of thyroid disorder appendectomy and cholecystectomy. Patient denies any cardiac history denies atrial fibrillation denies COPD or asthma. Ankle x-ray completed in ER showing redemonstration of fractures of the medial malleolus and distal fibula with improved alignment postreduction. Vital signs completed showing temp 98.8, heart rate 75, resp iratory rate 18, blood pressure 135/78 with pulse ox of 90% on 2 L. Lab work completed showing white blood cell 13.07, hemoglobin 11.2, creatinine 1.07, bun 23 troponin negative. Patient denies chest pain or shortness of breath. Patient denies nausea vomiting or diarrhea. Patient denies any urinary burning or frequency. Patient is tentatively scheduled today for surgical intervention with orthopedic services Review of Systems Please refer to HPI otherwise unremarkable Past Medical History Past Medical History: Eye Disorder, Thyroid Disorder History of Any Multi-Drug Resistant Organisms: None Reported Past Surgical History: Appendectomy, Cholecystectomy, Joint Replacement Additional Past Surgical History / Comment(s): R Shoulder replaced; Cataract R Eye Past Anesthesia/Blood Transfusion Reactions: No Reported Reaction Past Psychological History: No Psychological Hx Reported Smoking Status: Never smoker Past Alcohol Use History: None Reported Past Drug Use History: None Reported - Past Family History Mother Family Medical History: No Reported History Medications and Allergies Home Medications Medication Instructions Recorded Confirmed Type Levothyroxine Sodium [Synthroid] 25 mcg PO DAILY 12/10/17 06/12/25 History Escitalopram [Lexapro] 20 mg PO DAILY 06/12/25 06/12/25 History Fenofibrate [Lofibra] 160 mg PO DAILY 06/12/25 06/12/25 History HYDROcodone/APAP 10-325MG [[place] 1 tab PO TID 06/12/25 06/12/25 History 10-325] Ibuprofen [Motrin] 600 mg PO Q8HR PRN #30 tab 06/12/25 Rx Losartan [Cozaar] 50 mg PO DAILY 06/12/25 06/12/25 History Pravastatin Sodium [Pravachol] 20 mg PO HS 06/12/25 06/12/25 History metFORMIN HCL 1,000 mg PO BID 06/12/25 06/12/25 History Allergies Allergy/AdvReac Type Severity Reaction Status Date / Time No Known Allergies Allergy Verified 06/12/25 21:06 Physical Exam Vitals: Vital Signs Temp Pulse Pulse Resp BP BP Pulse Ox 06/13/25 10:39 75 18 06/13/25 10:38 98.8 F 75 18 135/78 06/13/25 08:00 98.8 F 75 18 135/78 06/13/25 01:14 97.9 F 92 20 184/69 96 06/13/25 00:22 88 18 131/63 100 06/12/25 23:40 81 18 153/68 99 06/12/25 23:10 80 18 173/81 97 06/12/25 22:40 81 16 156/65 99 06/12/25 22:25 91 16 143/73 97 06/12/25 22:12 98 06/12/25 22:10 87 16 131/82 97 06/12/25 21:55 101 H 16 145/66 99 06/12/25 21:53 79 12 83/44 91 L 06/12/25 21:50 85 15 105/50 99 06/12/25 21:45 79 12 93/49 97 06/12/25 21:41 87 15 168/82 97 06/12/25 21:39 80 19 162/66 98 06/12/25 18:44 98 F 68 18 165/76 99 06/12/25 17:12 97.8 F 68 18 150/81 99 Intake and Output 06/12/25 06/13/25 06/13/25 22:59 06:59 14:59 Intake Total 720 Balance 720 Intake: Intake, IV Titration 480 Amount Sodium Chloride 0.9% 1, 480 000 ml @ 20 mls/hr IV . Q24H [facility] Rx#:[id number] Oral 240 Other: Voiding Method External Catheter Weight 68.039 kg 68.039 kg Head normocephalic Neck supple Lungs clear to auscultation bilaterally no wheezing or crackles Heart regular rate and rhythm S1-S2, no rub or gallop Abdomen is soft nontender nondistended positive bowel sounds no hepatosplenomegaly Extremities no edema Neuro alert and orientated to 3 Results CBC & Chem 7: 06/12/25 20:38 06/12/25 20:38 Labs: Abnormal Lab Results - Last 24 Hours (Table) 06/12/25 06/12/25 Range/Units 20:38 20:38 WBC 13.07 H (4.50-10.00) 10*3/uL RBC 3.84 L (4.10-5.20) 10*6/uL Hgb 11.2 L (12.0-15.0) g/dL Hct 34.8 L (37.2-46.3) % MPV 9.3 L (9.5-12.2) fL Neutrophils # 10.03 H (1.80-7.70) 10*3/uL Sodium 136 L (137-145) mmol/L Carbon Dioxide 19 L (22-30) mmol/L BUN 23 H (7-17) mg/dL Creatinine 1.07 H (0.52-1.04) mg/dL Glucose 105 H (74-99) mg/dL Magnesium 1.5 L (1.6-2.3) mg/dL Assessment and Plan Assessment: Status post fall with right ankle fracture History of hypothyroidism History of cholecystectomy History of appendectomy Thank you for this consultation we will continue to follow patient closely throughout stay Tentative plans for surgical intervention on 06/13/2025 Repeat labs ordered for a.m. Time with Patient: Greater than 30 (Greater than 60% of the total time spent in counseling and coordination of care)
--- NOTE | 2025-06-13 13:33 | P.CONS ---
History of Present Illness - Reason for Consult Consult date: 06/13/25 - History of Present Illness Jeni Tompkins, is an 80-year-old female who presented to [facility] emergency room after sustaining a fall and complaining of left ankle pain She was evaluated in the emergency room vital examination on presentation revealed a temperature of 97.8 pulse 68 respiration 18 blood pressure 150/81 pulse ox 99% on room air Laboratory data revealed a white blood count of 13.07 hemoglobin 11.2 platelet count 409 sodium 136 potassium 5.0 chloride 105 CO2 19 BUN 23 creatinine 1.07 Testing in the emergency room revealed x-ray of the left ankle revealed fracture of the medial malleolus and distal fibula Patient was admitted to medical floor for further evaluation and treatment Past medical history is significant for history of hypertension, history of hyperlipidemia, history of hypothyroidism, history of eeh-hmusyaf-psdhtaeuf diabetes mellitus, history of osteoarthritis, history of degenerative disc disease with chronic back pain maintained on Mobile for pain management. Patient denies any previous history of coronary artery disease congestive heart failure or any cardiac event in the past On review of systems patient is alert and oriented x 3 in no apparent distress t here is no fever or chills no headache or dizziness no chest pain no shortness of breath no cough no nausea or vomiting no abdominal pain no diarrhea and no urinary symptoms Past Medical History Past Medical History: Eye Disorder, Thyroid Disorder History of Any Multi-Drug Resistant Organisms: None Reported Past Surgical History: Appendectomy, Cholecystectomy, Joint Replacement Additional Past Surgical History / Comment(s): R Shoulder replaced; Cataract R Eye Past Anesthesia/Blood Transfusion Reactions: No Reported Reaction Past Psychological History: No Psychological Hx Reported Smoking Status: Never smoker Past Alcohol Use History: None Reported Past Drug Use History: None Reported - Past Family History Mother Family Medical History: No Reported History Medications and Allergies Home Medications Medication Instructions Recorded Confirmed Type Levothyroxine Sodium [Synthroid] 25 mcg PO DAILY 12/10/17 06/12/25 History Escitalopram [Lexapro] 20 mg PO DAILY 06/12/25 06/12/25 History Fenofibrate [Lofibra] 160 mg PO DAILY 06/12/25 06/12/25 History HYDROcodone/APAP 10-325MG [[place] 1 tab PO TID 06/12/25 06/12/25 History 10-325] Ibuprofen [Motrin] 600 mg PO Q8HR PRN #30 tab 06/12/25 Rx Losartan [Cozaar] 50 mg PO DAILY 06/12/25 06/12/25 History Pravastatin Sodium [Pravachol] 20 mg PO HS 06/12/25 06/12/25 History metFORMIN HCL 1,000 mg PO BID 06/12/25 06/12/25 History Allergies Allergy/AdvReac Type Severity Reaction Status Date / Time No Known Allergies Allergy Verified 06/12/25 21:06 Physical Exam Vitals: Vital Signs Temp Pulse Pulse Resp BP BP Pulse Ox 06/13/25 01:14 97.9 F 92 20 184/69 96 06/13/25 00:22 88 18 131/63 100 06/12/25 23:40 81 18 153/68 99 06/12/25 23:10 80 18 173/81 97 06/12/25 22:40 81 16 156/65 99 06/12/25 22:25 91 16 143/73 97 06/12/25 22:12 98 06/12/25 22:10 87 16 131/82 97 06/12/25 21:55 101 H 16 145/66 99 06/12/25 21:53 79 12 83/44 91 L 06/12/25 21:50 85 15 105/50 99 06/12/25 21:45 79 12 93/49 97 06/12/25 21:41 87 15 168/82 97 06/12/25 21:39 80 19 162/66 98 06/12/25 18:44 98 F 68 18 165/76 99 06/12/25 17:12 97.8 F 68 18 150/81 99 Intake and Output 06/12/25 06/13/25 06/13/25 22:59 06:59 14:59 Intake Total 720 Balance 720 Intake: Intake, IV Titration 480 Amount Sodium Chloride 0.9% 1, 480 000 ml @ 20 mls/hr IV . Q24H [facility] Rx#:[id number] Oral 240 Other: Weight 68.039 kg 68.039 kg In general patient is alert and oriented x 3 in no distress HEENT head normocephalic and atraumatic Neck is supple no JVD no goiter no lymphadenopathy no carotid bruit Chest examination is clear to auscultation no crackles no wheezing Cardiac exam reveals regular heart sounds S1 and S2 no gallops no murmurs Abdomen is soft nontender no organomegaly with normal bowel sounds Extremity exam reveals no edema no cyanosis or clubbing Neurological examination reveals no gross focal deficits Results CBC & Chem 7: 06/12/25 20:38 06/12/25 20:38 Labs: Abnormal Lab Results - Last 24 Hours (Table) 06/12/25 06/12/25 Range/Units 20:38 20:38 WBC 13.07 H (4.50-10.00) 10*3/uL RBC 3.84 L (4.10-5.20) 10*6/uL Hgb 11.2 L (12.0-15.0) g/dL Hct 34.8 L (37.2-46.3) % MPV 9.3 L (9.5-12.2) fL Neutrophils # 10.03 H (1.80-7.70) 10*3/uL Sodium 136 L (137-145) mmol/L Carbon Dioxide 19 L (22-30) mmol/L BUN 23 H (7-17) mg/dL Creatinine 1.07 H (0.52-1.04) mg/dL Glucose 105 H (74-99) mg/dL Magnesium 1.5 L (1.6-2.3) mg/dL Assessment and Plan Plan: Fall with left ankle fracture Underlying history of hypertension Underlying history of hyperlipidemia Underlying history of hypothyroidism Underlying history of ipv-exmcejq-wzbaybqlm diabetes mellitus Underlying history of degenerative disc disease with chronic back pain Patient was seen and examined Home medications reviewed and reordered There is no previous history of any cardiac disease There is no medical contraindication for surgery Will follow closely
[2025-06-13] MEDS: HYDROcodone/APAP 10-325MG 1 EACH TAB PO SCH (13:46)
[2025-06-13] MEDS: IV FLUID CONTINUATION 1,000 ML IV ONE (17:39)
[2025-06-13] MEDS: MIDAZOLAM 2 MG/2 ML VIAL IV ONE (17:49)
[2025-06-13] MEDS ORDERED: MIDAZOLAM 2 MG/2 ML VIAL ONE (17:59)
[2025-06-13] MEDS ORDERED: ROPIVACAINE 5 MG/ML 30 ML VIAL ONE (17:59)
[2025-06-13] MEDS ORDERED: PROPOFOL 10 MG/ML 20 ML VIAL IV ONE (17:59)
[2025-06-13] MEDS ORDERED: LIDOCAINE 1% INJ 10MG/ML (20 ML MDV) ONE (17:59)
[2025-06-13] MEDS ORDERED: ePHEDrine 50 MG/ML 1 ML VIAL ONE (17:59)
[2025-06-13] MEDS ORDERED: DEXAMETHASONE SOD PHOSPHATE 4 MG/ML 1 ML VIAL ONE (17:59)
[2025-06-13] MEDS ORDERED: HYDROmorphone (PF) 1 MG/ML ONE (17:59)
[2025-06-13] MEDS ORDERED: fentaNYL (PF) 50 MCG/ML 2 ML AMP ONE (17:59)
[2025-06-13] MEDS ORDERED: SODIUM CHLORIDE 0.9% (PF) 10 ML VIAL ONE (17:59)
[2025-06-13] MEDS: SODIUM CHLORIDE 0.9% 100 ML with ceFAZolin 2,000 MG IV ONE (18:05)
--- NOTE | 2025-06-13 18:07 | P.ANPRN ---
Procedure Note - Anesthesia - Nerve Block Performed Left Popliteal Single Time Out Performed: Yes (2009) Date of Procedure: 06/13/25 Procedure Start Time: 17:47 Procedure Stop Time: 17:57 Location of Patient: PreOp Indication: Acute Post-Operative Pain, Requested by Surgeon Sedation Type: Sedate with meaningful contact maintained Preparation: Sterile Prep, Sterile Dressing Position: Right Lateral Catheter: None Needle Types: Pajunk Needle Gauge: 21 Ultrasound used to visualize needle placement: Yes Ultrasound used to observe medication spread: Yes Injectate: 0.5% Ropivacaine (see comment for volume) (21 mL of block solution containing 20 mL of 0.5% ropivacaine mixed with 4 mg of dexamethasone) Blood Aspirated: No Pain Paresthesia on Injection Noted: No Resistance on Injection: Normal Image Stored and Saved: No Events: Uneventful and Well Tolerated
[2025-06-13] MEDS ORDERED: HYDROmorphone 0.5 MG/0.5 ML SYRINGE IVP PRN (18:09)
[2025-06-13] MEDS ORDERED: SENNOSIDES-DOCUSATE SODIUM 1 EACH TAB PO PRN (18:09)
--- NOTE | 2025-06-13 18:09 | P.ANPRN ---
Procedure Note - Anesthesia - Nerve Block Performed Left Adductor Canal Single Time Out Performed: Yes ([id number]) Date of Procedure: 06/13/25 Procedure Start Time: 17:47 Procedure Stop Time: 17:57 Location of Patient: PreOp Indication: Acute Post-Operative Pain, Requested by Surgeon Sedation Type: Sedate with meaningful contact maintained Preparation: Sterile Prep, Sterile Dressing Position: Supine Catheter: None Needle Types: Pajunk Needle Gauge: 21 Ultrasound used to visualize needle placement: Yes Ultrasound used to observe medication spread: Yes Injectate: 0.5% Ropivacaine (see comment for volume) (21 mL of block solution containing 10 mL of 0.5% ropivacaine mixed with 4 mg of dexamethasone, and 10 mL of preservative-free normal saline) Blood Aspirated: No Pain Paresthesia on Injection Noted: No Resistance on Injection: Normal Image Stored and Saved: Yes Events: Uneventful and Well Tolerated
[2025-06-13] MEDS: LACTATED RINGERS 1,000 ML IV ONE (19:03)
[2025-06-13 21:37] LABS: Glucose,Whole Blood 128 mg/dL (70-110)
[2025-06-13] MEDS: PRAVASTATIN SODIUM 20 MG TAB PO SCH (23:01)
[2025-06-13] MEDS: metFORMIN 500 MG TAB PO SCH (23:10)
[2025-06-13] MEDS: DEXAMETHASONE SOD PHOSPHATE 4 MG/ML 1 ML VIAL IV ONE (23:25)
[2025-06-13] MEDS: ONDANSETRON 4 MG/2 ML VIAL IVP ONE (23:26)
[2025-06-13] MEDS: LACTATED RINGERS 1,000 ML IV SCH (23:27)
--- NOTE | 2025-06-14 00:43 | XR ---
Fluoroscopy INDICATION: Pain FINDINGS: Fluoroscopy time: 37 seconds. Total dose area product (DAP) in uGy*m?, mGy*cm? (or similar): 0.2692 Images obtained: 7. Images document open reduction internal fixation distal fibula and tibia. IMPRESSION: 1. Documentation of fluoroscopy. [facility], Workstation: [facility], 06/14/2025 12:41 AM
--- NOTE | 2025-06-14 00:51 | FL ---
Fluoroscopy INDICATION: Pain FINDINGS: Fluoroscopy time: 37 seconds. Total dose area product (DAP) in uGy*m?, mGy*cm? (or similar): 0.2692 Images obtained: 0. Images document the procedure. IMPRESSION: 1. Documentation of fluoroscopy. [facility], Workstation: [facility], 06/14/2025 12:49 AM
[2025-06-14] MEDS: KETOROLAC 15 MG/ML 1 ML VIAL IVP PRN (03:09)
[2025-06-14] MEDS: LEVOTHYROXINE 25 MCG TAB PO SCH (06:18)
[2025-06-14] MEDS ORDERED: HYDROmorphone 0.5 MG/0.5 ML SYRINGE IVP PRN (07:00)
[2025-06-14 07:53] LABS: Basophils # (A) 0.01 X 10*3/uL (0.00-0.10); Basophils % (A) 0.1 %; Eosinophils # (A) 0 X 10*3/uL (0.04-0.35); Eosinophils % (A) 0 %; HCT 29.0 % (37.2-46.3); HGB 9.0 g/dL (12.0-15.0); Immature Grans, Automated 0.30 %; Lymphocytes # (A) 0.64 X 10*3/uL (0.90-5.00); Lymphocytes % (A) 8.5 %; MCH 28.4 pg (27.0-32.0); MCHC 31.0 g/dL (32.0-37.0); MCV 91.5 FL (80.0-97.0); Monocytes # (A) 0.32 X 10*3/uL (0.20-1.00); Monocytes % (A) 4.2 %; NRBC Per 100 WBC 0 X 10*3/uL (0.00-0.01); Neutrophils # (A) 6.56 X 10*3/uL (1.80-7.70); Neutrophils % (A) 86.9 %; Platelet Count 321 X 10*3/uL (140-440); RBC 3.17 X 10*6/uL (4.10-5.20); RDW 14.1 % (11.5-14.5); WBC 7.55 X 10*3/uL (4.50-10.00)
[2025-06-14] MEDS: LOSARTAN 50 MG TAB PO SCH (08:04)
[2025-06-14] MEDS: ESCITALOPRAM 20 MG TAB PO SCH (08:04)
[2025-06-14] MEDS: ASPIRIN 81 MG PO SCH (08:04)
[2025-06-14] MEDS: FENOFIBRATE 160 MG TAB PO SCH (08:04)
[2025-06-14 08:10] LABS: ALT 5 U/L (8-44); AST 17 U/L (13-35); Albumin 3.7 g/dL (3.8-4.9); Albumin/Globulin Ratio 2.18 Ratio (1.60-3.17); Alkaline Phosphatase 38 U/L (41-126); Anion Gap 8.60 mmol/L (4.00-12.00); BUN/Creat Ratio 17.56 Ratio (12.00-20.00); Blood Urea Nitrogen 15.8 mg/dL (9.0-27.0); Calcium 8.6 mg/dL (8.7-10.3); Carbon Dioxide 24.4 mmol/L (21.6-31.8); Chloride 103 mmol/L (96-109); Globulin 1.7 g/dL (1.6-3.3); Glucose 148 mg/dL (70-110); Potassium 4.9 mmol/L (3.5-5.5); Sodium 136 mmol/L (135-145); Total Protein 5.4 g/dL (6.2-8.2)
--- NOTE | 2025-06-14 08:32 | P.PN ---
Subjective Progress Note Date: 06/14/25 Principal diagnosis: Status post left ankle ORIF This is a 80 year-old female post left ankle ORIF. This is post-op day 1. The patient was evaluated at the bedside this morning. The patient denies nausea, vomiting, abdominal pain, chest pain, or shortness of breath this morning. She states her pain is controlled at this time. The patient has not been up with physical therapy yet this morning. Objective - Vital Signs Vital signs: Vital Signs Temp 98.3 F 06/14/25 07:57 Pulse 84 06/14/25 07:57 Resp 16 06/14/25 07:57 BP 177/74 06/14/25 07:57 Pulse Ox 100 06/14/25 07:57 FiO2 Intake & Output 06/13/25 06/14/25 06/14/25 18:59 06:59 18:59 Intake Total 1100 740 Output Total 450 900 Balance 650 -160 Intake: IV 1100 500 Oral 240 Output: Urine 450 850 Estimated Blood Loss 50 Other: Voiding Method External Catheter External Catheter - Exam The patient does not appear in acute distress. Alert and orientated x3. Splint and dressing is clean dry and intact. She is able to wiggle her toes without difficulty. Sensation and circulatory status is intact. - Labs CBC & Chem 7: 06/14/25 05:41 06/14/25 05:41 Labs: Abnormal Lab Results - Last 24 Hours (Table) 06/13/25 06/14/25 06/14/25 Range/Units 21:28 05:41 05:41 RBC 3.17 L (4.10-5.20) X 10*6/uL Hgb 9.0 L (12.0-15.0) g/dL Hct 29.0 L (37.2-46.3) % MCHC 31.0 L (32.0-37.0) g/dL Lymphocytes # 0.64 L (0.90-5.00) X 10*3/uL Eosinophils # 0 L (0.04-0.35) X 10*3/uL Glucose 148 H (70-110) mg/dL POC Glucose (mg/dL) 128 H (70-110) mg/dL Calcium 8.6 L (8.7-10.3) mg/dL Total Bilirubin <0.2 L (0.3-1.2) mg/dL ALT 5 L (8-44) U/L Alkaline Phosphatase 38 L (41-126) U/L Total Protein 5.4 L (6.2-8.2) g/dL Albumin 3.7 L (3.8-4.9) g/dL Assessment and Plan (1) Displaced bimalleolar fracture of left ankle Current Visit: Yes Status: Acute Code(s): S82.842A - DISPLACED BIMALLEOLAR FRACTURE OF LEFT LOWER LEG, INIT SNOMED Code(s): 751627260 (2) Fall Current Visit: Yes Status: Acute Code(s): W19.XXXA - UNSPECIFIED FALL, INITIAL ENCOUNTER SNOMED Code(s): 2911875 Plan: 1. Continue pain control 2. Anticoagulation with Aspirin 81 mg BID 3. Start physical therapy and ambulation today, nonweightbearing to left leg. 4. Anticipate discharge home with homecare vs. skilled rehab depending on how she does with PT.
--- NOTE | 2025-06-14 17:08 | P.PN ---
Subjective Progress Note Date: 06/14/25 Jeni Tompkins is an 80-year-old female patient who presented after sustaining a fall with ankle fracture. Patient reports she was caring an [id number]-grl and tripped over a step. Patient denies loss of consciousness or other injuries. Patient has past medical history of thyroid disorder appendectomy and cholecystectomy. Patient denies any cardiac history denies atrial fibrillation denies COPD or asthma. Ankle x-ray completed in ER showing redemonstration of fractures of the medial malleolus and distal fibula with improved alignment postreduction. Vital signs completed showing temp 98.8, heart rate 75, respiratory rate 18, blood pressure 135/78 with pulse ox of 90% on 2 L. Lab work completed showing white blood cell 13.07, hemoglobin 11.2, creatinine 1.07, bun 23 troponin negative. Patient denies chest pain or shortness of breath. Patient denies nausea vomiting or diarrhea. Patient denies any urinary burning or frequency. Patient is tentatively scheduled today for surgical intervention with orthopedic services 06/14/2025 patient was seen and examined on the medical floor she is alert and oriented x 3 in no apparent distress there is no fever or chills no headache or dizziness no chest pain no shortness of breath no cough no nausea or vomiting no abdominal pain no diarrhea and no urinary symptoms she underwent open reduction and internal fixation of the left ankle yesterday patient will need rehab admission after this admission she is agreeable with Anh Rae Objective - Vital Signs Vital signs: Vital Signs Temp 98.4 F 06/14/25 13:44 Pulse 68 06/14/25 13:44 Resp 18 06/14/25 13:44 BP 149/69 06/14/25 13:44 Pulse Ox 100 06/14/25 13:44 FiO2 Intake & Output 06/13/25 06/14/25 06/14/25 18:59 06:59 18:59 Intake Total 2918 098 2256 Output Total 450 900 Balance 650 -160 1080 Intake: IV 1100 500 Oral 240 1080 Output: Urine 450 850 Estimated Blood Loss 50 Other: Voiding Method External Catheter External Catheter External Catheter - Exam In general patient is alert and oriented x 3 in no distress HEENT head normocephalic and atraumatic Neck is supple no JVD no goiter no lymphadenopathy no carotid bruit Chest examination is clear to auscultation no crackles no wheezing Cardiac exam reveals regular heart sounds S1 and S2 no gallops no murmurs Abdomen is soft nontender no organomegaly with normal bowel sounds Extremity exam reveals no edema no cyanosis or clubbing Neurological examination reveals no gross focal deficits - Labs CBC & Chem 7: 06/14/25 05:41 06/14/25 05:41 Labs: Abnormal Lab Results - Last 24 Hours (Table) 06/13/25 06/14/25 06/14/25 Range/Units 21:28 05:41 05:41 RBC 3.17 L (4.10-5.20) X 10*6/uL Hgb 9.0 L (12.0-15.0) g/dL Hct 29.0 L (37.2-46.3) % MCHC 31.0 L (32.0-37.0) g/dL Lymphocytes # 0.64 L (0.90-5.00) X 10*3/uL Eosinophils # 0 L (0.04-0.35) X 10*3/uL Glucose 148 H (70-110) mg/dL POC Glucose (mg/dL) 128 H (70-110) mg/dL Calcium 8.6 L (8.7-10.3) mg/dL Total Bilirubin <0.2 L (0.3-1.2) mg/dL ALT 5 L (8-44) U/L Alkaline Phosphatase 38 L (41-126) U/L Total Protein 5.4 L (6.2-8.2) g/dL Albumin 3.7 L (3.8-4.9) g/dL Assessment and Plan Plan: Fall with left ankle fracture Underlying history of hypertension Underlying history of hyperlipidemia Underlying history of hypothyroidism Underlying history of [id number]-bliexfbod diabetes mellitus Underlying history of degenerative disc disease with chronic back pain Patient was seen and examined Home medications reviewed and reordered There is no previous history of any cardiac disease There is no medical contraindication for surgery Will follow closely
[2025-06-14] MEDS: ENOXAPARIN 40 MG/0.4 ML SYRINGE SQ SCH (17:52)
--- NOTE | 2025-06-14 22:35 | P.OP ---
Date of Procedure: 06/13/25 Preoperative Diagnosis: Left ankle bimalleolar fracture Postoperative Diagnosis: Left trimalleolar ankle fracture Procedure(s) Performed: Left ankle ORIF Implants: Son distal fibula plate, 4.0 cannulated screws, 2.7 screw Anesthesia: MAC, regional Surgeon: Rosa Posada Estimated Blood Loss (ml): 5 Pathology: none sent Condition: stable Disposition: PACU Indications for Procedure: Patient fell on 06/12/25 sustained an ankle fracture dislocation. ER reduction was not able to adequately reduce the joint. We have decided to perform an ORIF. Risks and benefits were discussed with the patient and they are in agreement. Description of Procedure: The patient, operative extremity, and procedure were identified in the preoperative holding area. After informed consent was obtained, the patient received a regional block by the anesthesia team. The patient was positioned supine on the operating table with a bump under the operative leg. The extremity was prepped and draped in normal sterile fashion with a tourniquet on the patients thigh. After a formal time out was performed, the tourniquet was inflated. A lateral longitudinal incision was made over the distal fibula. Dissection was carried down through subcutaneous tissues, taking care to protect the superficial peroneal nerve. The fracture was identified and exposed. Hematoma and interposed soft tissue were debrided from the fracture site. An additional fracture was noted of the chaput fragment. This was reduced to the anterior tibia. The fracture fragments of the fibula were anatomically reduced and provisionally stabilized with a clamp. Reduction was confirmed under direct visualization and fluoroscopy. A pre-contoured lateral distal fibular locking plate was selected and applied to the bone. The plate was secured with a combination of cortical and locking screws, ensuring appropriate fixation both proximally and distally. Final fluoroscopy confirmed anatomic alignment and appropriate hardware placement. Attention was then turned back to the chaput fragment. A 2.7 screw was inserted with compression across the fracture line. Attention was then turned to the medial side. A longitudinal incision was made over the medial malleolus. Dissection was carried through soft tissues down to the level of the fracture. The deltoid ligament was inspected and noted to be intact. Fracture hematoma and debris were evacuated. The medial malleolar fracture fragments were anatomically reduced and held with a reduction clamp. Under fluoroscopic guidance, two 4.0 mm fully threaded cannulated screws were placed across the fracture site in parallel fashion to achieve compression. Screw positions and reduction were confirmed with fluoroscopy. The surgical sites were irrigated thoroughly with normal saline. Hemostasis was achieved. Stress views of the ankle did not show disruption of the tibiotalar joint. Deep tissues were closed with absorbable sutures. Skin was closed with interrupted nylon sutures (or [place], depending on preference). A sterile dressing was applied, and a well-padded posterior splint with stirrups was placed with the ankle in neutral.
[2025-06-15] MEDS: MELATONIN 3 MG TABLET PO PRN (01:25)
[2025-06-15] MEDS: KETOROLAC 15 MG/ML 1 ML VIAL IVP PRN (01:26)
--- NOTE | 2025-06-15 09:29 | P.PN ---
Subjective Progress Note Date: 06/15/25 Jeni Tompkins is an 80-year-old female patient who presented after sustaining a fall with ankle fracture. Patient reports she was caring an [id number] and tripped over a step. Patient denies loss of consciousness or other injuries. Patient has past medical history of thyroid disorder appendectomy and cholecystectomy. Patient denies any cardiac history denies atrial fibrillation denies COPD or asthma. Ankle x-ray completed in ER showing redemonstration of fractures of the medial malleolus and distal fibula with improved alignment postreduction. Vital signs completed showing temp 98.8, heart rate 75, respiratory rate 18, blood pressure 135/78 with pulse ox of 90% on 2 L. Lab work completed showing white blood cell 13.07, hemoglobin 11.2, creatinine 1.07, bun 23 troponin negative. Patient denies chest pain or shortness of breath. Patient denies nausea vomiting or diarrhea. Patient denies any urinary burning or frequency. Patient is tentatively scheduled today for surgical intervention with orthopedic services 06/14/2025 patient was seen and examined on the medical floor she is alert and oriented x 3 in no apparent distress there is no fever or chills no headache or dizziness no chest pain no shortness of breath no cough no nausea or vomiting no abdominal pain no diarrhea and no urinary symptoms she underwent open reduction and internal fixation of the left ankle yesterday patient will need rehab admission after this admission she is agreeable with [facility] On 06/15/2025 patient is alert and oriented x 3. Patient complaining about increased anxiety will add Xanax. Discharge planning to [facility]. Patient denies chest pain or shortness of breath. Patient denies nausea vomiting or diarrhea. Patient denies any urinary burning or frequency Objective - Vital Signs Vital signs: Vital Signs Temp 97.9 F 06/15/25 07:30 Pulse 74 06/15/25 07:30 Resp 16 06/15/25 07:30 BP 179/80 06/15/25 07:30 Pulse Ox 95 06/15/25 07:30 FiO2 Intake & Output 06/14/25 06/15/25 06/15/25 18:59 06:59 18:59 Intake Total 1080 Output Total 600 1100 Balance 480 -1100 Intake: Oral 1080 Output: Urine 600 1100 Other: Voiding Method External Catheter External Catheter External Catheter - Exam In general patient is alert and oriented x 3 in no distress HEENT head normocephalic and atraumatic Neck is supple no JVD no goiter no lymphadenopathy no carotid bruit Chest examination is clear to auscultation no crackles no wheezing Cardiac exam reveals regular heart sounds S1 and S2 no gallops no murmurs Abdomen is soft nontender no organomegaly with normal bowel sounds Extremity exam reveals no edema no cyanosis or clubbing Neurological examination reveals no gross focal deficits - Labs CBC & Chem 7: 06/14/25 05:41 06/14/25 05:41 Assessment and Plan Assessment: Fall with left ankle fracture. Status post surgical repair Underlying history of hypertension Underlying history of hyperlipidemia Underlying history of hypothyroidism Underlying history of uuk-yurtdyv-zabychedf diabetes mellitus Underlying history of degenerative disc disease with chronic back pain Patient was seen and examined Home medications reviewed and reordered There is no previous history of any cardiac disease There is no medical contraindication for surgery Will follow closely
[2025-06-15] MEDS: ALPRAZolam 0.25 MG TAB PO PRN ×2 (11:28→21:58)
--- NOTE | 2025-06-15 16:10 | P.PN ---
Subjective Progress Note Date: 06/15/25 Principal diagnosis: Status post left ankle ORIF This is a 80 year-old female post left ankle ORIF. This is post-op day 2. The patient was evaluated at the bedside this afternoon. The patient denies nausea, vomiting, abdominal pain, chest pain, or shortness of breath this morning. She states her pain is controlled at this time. The patient has been up with physical therapy. We are awaiting insurance auth for rehab. Objective - Vital Signs Vital signs: Vital Signs Temp 98.3 F 06/15/25 12:39 Pulse 65 06/15/25 12:39 Resp 20 06/15/25 12:39 BP 188/75 06/15/25 12:39 Pulse Ox 96 06/15/25 12:39 FiO2 Intake & Output 06/14/25 06/15/25 06/15/25 18:59 06:59 18:59 Intake Total 1080 Output Total 600 1100 Balance 480 -1100 Intake: Oral 1080 Output: Urine 600 1100 Other: Voiding Method External Catheter External Catheter External Catheter - Exam The patient does not appear in acute distress. Alert and orientated x3. Splint and dressing is clean dry and intact. She is able to wiggle her toes without difficulty. Sensation and circulatory status is intact. - Labs CBC & Chem 7: 06/14/25 05:41 06/14/25 05:41 Assessment and Plan (1) Displaced bimalleolar fracture of left ankle Current Visit: Yes Status: Acute Code(s): S82.842A - DISPLACED BIMALLEOLAR FRACTURE OF LEFT LOWER LEG, INIT SNOMED Code(s): 189043489 (2) Fall Current Visit: Yes Status: Acute Code(s): W19.XXXA - UNSPECIFIED FALL, INITIAL ENCOUNTER SNOMED Code(s): 1233617 Plan: 1. Continue pain control 2. Anticoagulation with Aspirin 81 mg BID 3. Continue physical therapy and ambulation today, nonweightbearing to left leg. 4. Anticipate discharge to skilled rehab in the next 1-2 days.
[2025-06-15 19:53] VITALS: RESP 16
[2025-06-16] MEDS: hydrALAZINE HCL 20 MG/ML 1 ML VIAL IVP PRN (01:24)
[2025-06-16 07:54] LABS: Basophils # (A) 0.05 X 10*3/uL (0.00-0.10); Basophils % (A) 0.6 %; Eosinophils # (A) 0.20 X 10*3/uL (0.04-0.35); Eosinophils % (A) 2.5 %; HCT 30.1 % (37.2-46.3); HGB 9.6 g/dL (12.0-15.0); Immature Grans, Automated 0.50 %; Lymphocytes # (A) 1.76 X 10*3/uL (0.90-5.00); Lymphocytes % (A) 22.1 %; MCH 28.8 pg (27.0-32.0); MCHC 31.9 g/dL (32.0-37.0); MCV 90.4 FL (80.0-97.0); Monocytes # (A) 0.66 X 10*3/uL (0.20-1.00); Monocytes % (A) 8.3 %; NRBC Per 100 WBC 0 X 10*3/uL (0.00-0.01); Neutrophils # (A) 5.24 X 10*3/uL (1.80-7.70); Neutrophils % (A) 66.0 %; Platelet Count 355 X 10*3/uL (140-440); RBC 3.33 X 10*6/uL (4.10-5.20); RDW 14.2 % (11.5-14.5); WBC 7.95 X 10*3/uL (4.50-10.00)
[2025-06-16] MEDS: ALPRAZolam 0.25 MG TAB PO PRN (09:21)
[2025-06-16] MEDS: FUROSEMIDE 10 MG/ML 2 ML VIAL IV ONE (09:29)
--- NOTE | 2025-06-16 10:01 | P.PN ---
Subjective Progress Note Date: 06/16/25 Jeni Tompkins is an 80-year-old female patient who presented after sustaining a fall with ankle fracture. Patient reports she was caring an [id number] and tripped over a step. Patient denies loss of consciousness or other injuries. Patient has past medical history of thyroid disorder appendectomy and cholecystectomy. Patient denies any cardiac history denies atrial fibrillation denies COPD or asthma. Ankle x-ray completed in ER showing redemonstration of fractures of the medial malleolus and distal fibula with improved alignment postreduction. Vital signs completed showing temp 98.8, heart rate 75, respiratory rate 18, blood pressure 135/78 with pulse ox of 90% on 2 L. Lab work completed showing white blood cell 13.07, hemoglobin 11.2, creatinine 1.07, bun 23 troponin negative. Patient denies chest pain or shortness of breath. Patient denies nausea vomiting or diarrhea. Patient denies any urinary burning or frequency. Patient is tentatively scheduled today for surgical intervention with orthopedic services 06/14/2025 patient was seen and examined on the medical floor she is alert and oriented x 3 in no apparent distress there is no fever or chills no headache or dizziness no chest pain no shortness of breath no cough no nausea or vomiting no abdominal pain no diarrhea and no urinary symptoms she underwent open reduction and internal fixation of the left ankle yesterday patient will need rehab admission after this admission she is agreeable with [facility] On 06/15/2025 patient is alert and oriented x 3. Patient complaining about increased anxiety will add Xanax. Discharge planning to [facility]. Patient denies chest pain or shortness of breath. Patient denies nausea vomiting or diarrhea. Patient denies any urinary burning or frequency On 06/16/2025 patient is alert and oriented x 3. Patient having elevated blood pressure blood pressure meds adjusted. Patient will be DC'd to [facility] today. Patient denies chest pain or shortness of breath. Patient denies nausea vomiting or diarrhea. Patient denies any urinary burning or frequency Objective - Vital Signs Vital signs: Vital Signs Temp 97.3 F L 06/16/25 07:20 Pulse 81 06/16/25 07:20 Resp 16 06/16/25 07:20 BP 191/74 06/16/25 09:30 Pulse Ox 96 06/16/25 07:20 FiO2 Intake & Output 07/24/25 07/25/25 07/25/25 18:59 06:59 18:59 Intake Total 1320 Output Total 1100 900 Balance 220 -900 Intake: Intake, IV Titration 160 Amount Sodium Chloride 0.9% 100 160 ml @ 0 mls/hr IV .STK-MED ONE with ceFAZolin 2,000 mg Rx#:[id number] Oral 1160 Output: Urine 1100 900 Other: Voiding Method External Catheter External Catheter External Catheter - Exam In general patient is alert and oriented x 3 in no distress HEENT head normocephalic and atraumatic Neck is supple no JVD no goiter no lymphadenopathy no carotid bruit Chest examination is clear to auscultation no crackles no wheezing Cardiac exam reveals regular heart sounds S1 and S2 no gallops no murmurs Abdomen is soft nontender no organomegaly with normal bowel sounds Extremity exam reveals no edema no cyanosis or clubbing Neurological examination reveals no gross focal deficits - Labs CBC & Chem 7: 06/16/25 05:53 06/14/25 05:41 Labs: Abnormal Lab Results - Last 24 Hours (Table) 06/16/25 Range/Units 05:53 RBC 3.33 L (4.10-5.20) X 10*6/uL Hgb 9.6 L (12.0-15.0) g/dL Hct 30.1 L (37.2-46.3) % MCHC 31.9 L (32.0-37.0) g/dL Assessment and Plan Assessment: Fall with left ankle fracture. Status post surgical repair Underlying history of hypertension Underlying history of hyperlipidemia Underlying history of hypothyroidism Underlying history of jkf-kpygrfc-lfwlnwssh diabetes mellitus Underlying history of degenerative disc disease with chronic back pain Patient was seen and examined Home medications reviewed and reordered There is no previous history of any cardiac disease Blood pressure meds have been adjusted
[2025-06-16 10:42] LABS: Anion Gap 9.30 mmol/L (4.00-12.00); BUN/Creat Ratio 17.57 Ratio (12.00-20.00); Blood Urea Nitrogen 12.3 mg/dL (9.0-27.0); Calcium 9.0 mg/dL (8.7-10.3); Carbon Dioxide 23.7 mmol/L (21.6-31.8); Chloride 106 mmol/L (96-109); Glucose 106 mg/dL (70-110); Potassium 4.1 mmol/L (3.5-5.5); Sodium 139 mmol/L (135-145)
[2025-06-16] MEDS: ACETAMINOPHEN TAB 325 MG TAB PO PRN (11:47)
--- NOTE | 2025-06-16 12:10 | P.DS ---
Providers Date of admission: 06/12/25 20:16 Expected date of discharge: 06/16/25 Attending physician: Rosa Posada Consults: 06/12/25 20:14 Consult Physician Routine Consulting Provider: Shanna Bonilla Consult Reason/Comments: [employer] Do you want consulting provider notified?: Yes Primary care physician: Shanna Bonilla - Discharge Diagnosis(es) (1) Displaced bimalleolar fracture of left ankle Current Visit: Yes Status: Acute (2) Fall Current Visit: Yes Status: Acute Hospital Course: This is a 80 year old female who presented to the hospital post fall at home and sustained a left ankle fracture. The patient was cleared by medicine for surgery. The patient underwent a left ankle ORIF on 06/13/[address] Rosa Posada. The procedure was performed without complication or sequelae. The patient is doing well postoperatively. Labs and vital signs are stable on the day of discharge. On the day of discharge the patient's splint is clean, dry, and intact. She is able to move her toes without difficulty. Neurovascular status to the left lower extremity is intact. The patient is discharged to skilled rehab in good condition. Pertinent Studies: Laboratory Tests 06/16/25 05:53 WBC 7.95 RBC 3.33 L Hgb 9.6 L Hct 30.1 L MCHC 31.9 L Patient Condition at Discharge: Stable Plan - Discharge Summary Discharge Rx Participant: No New Discharge Prescriptions: New Ibuprofen 600 mg PO Q6H PRN #30 tab PRN Reason: Pain Losartan [Cozaar] 100 mg PO DAILY tab Melatonin 6 mg PO HS PRN tab PRN Reason: Insomnia ALPRAZolam [Xanax] 0.25 mg PO Q6HR PRN 3 Days #12 tab PRN Reason: Anxiety Aspirin 81 mg PO BID #60 tab Sennosides-Docusate Sodium [Senokot-S] 2 tab PO DAILY #30 tablet carvediloL [Coreg] 3.125 mg PO BID-W/MEALS tab Continue Levothyroxine Sodium [Synthroid] 25 mcg PO DAILY Escitalopram [Lexapro] 20 mg PO DAILY metFORMIN HCL 1,000 mg PO BID Pravastatin Sodium [Pravachol] 20 mg PO HS Fenofibrate [Lofibra] 160 mg PO DAILY HYDROcodone/APAP 10-325MG [[place] 10-325] 1 tab PO TID 3 Days #9 tab Discontinued Losartan [Cozaar] 50 mg PO DAILY Discharge Medication List Levothyroxine Sodium [Synthroid] 25 mcg PO DAILY 12/10/17 [History] Escitalopram [Lexapro] 20 mg PO DAILY 06/12/25 [History] Fenofibrate [Lofibra] 160 mg PO DAILY 06/12/25 [History] Pravastatin Sodium [Pravachol] 20 mg PO HS 06/12/25 [History] metFORMIN HCL 1,000 mg PO BID 06/12/25 [History] ALPRAZolam [Xanax] 0.25 mg PO Q6HR PRN 3 Days #12 tab 06/16/25 [Rx] Aspirin 81 mg PO BID #60 tab 06/16/25 [Rx] HYDROcodone/APAP 10-325MG [[place] 10-325] 1 tab PO TID 3 Days #9 tab 06/16/25 [Rx] Ibuprofen 600 mg PO Q6H PRN #30 tab 06/16/25 [Rx] Losartan [Cozaar] 100 mg PO DAILY tab 06/16/25 [Rx] Melatonin 6 mg PO HS PRN tab 06/16/25 [Rx] Sennosides-Docusate Sodium [Senokot-S] 2 tab PO DAILY #30 tablet 06/16/25 [Rx] carvediloL [Coreg] 3.125 mg PO BID-W/MEALS tab 06/16/25 [Rx] Follow up Appointment(s)/Referral(s): Rosa Posada [Doctor of Osteopathic Medicine] - 2 Weeks Shanna Bonilla MD [Primary Care Provider] - 1-2 days Patient Instructions/Handouts: Leg Fracture (ED), Fall Prevention for Older Adults (ED) Activity/Diet/Wound Care/Special Instructions: Nonweightbearing to left leg with a walker Elevate and ice left ankle Keep splint in place and dry until follow up with Dr. Posada in 2 weeks. Discharge Disposition: TRANSFER TO SNF/ECF
[2025-06-16 12:24] VITALS: BP 145/80; PULSE 68; TEMP 97.8
[2025-06-16] MEDS ORDERED: HYDROcodone/APAP 10-325MG 1 EACH TAB PO SCH (16:00)
[2025-06-17] MEDS ORDERED: LOSARTAN 50 MG TAB PO SCH (09:00)
== END 2025-06-16 14:05 ==
LOC: EC 16:56 → 5NMEDONC 20:16
PROVIDERS: ADMIT Orthopaedic Surgery Hand Surgery; ATTEND Orthopaedic Surgery Hand Surgery
DX: S82.852A Displaced trimalleolar fracture of left lower leg, initial encounter for closed fracture (principal); W10.9XXA Fall (on) (from) unspecified stairs and steps, initial encounter; G89.18 Other acute postprocedural pain; I10 Essential (primary) hypertension; E78.5 Hyperlipidemia, unspecified; E03.9 Hypothyroidism, unspecified; E11.9 Type 2 diabetes mellitus without complications; M54.9 Dorsalgia, unspecified; G89.29 Other chronic pain; Z90.49 Acquired absence of other specified parts of digestive tract; Z79.890 Hormone replacement therapy; Z79.899 Other long term (current) drug therapy; Z79.84 Long term (current) use of oral hypoglycemic drugs
CPT/HCPCS: 27822; 96376 ×4; 96361 ×2; 96365; 96366; 96372 ×4; 96374; 96375 ×3; 99285; 27752; 94760 ×2; 93005; 97530 ×2; 97161; 97166; 64447; 64445; 80053 ×2; 80048; 83605; 83735; 84100; 84484; 85025 ×3; 85610; 85730; 73600; 73610 ×2; G0378 ×5; C1713; J2250; J0360; J1100; J0690 ×3; J2405; J2003; J1650 ×3; J3010; J1171 ×5; J2795; J1885 ×4; J2704 ×2; J1938; J2312